=== PATIENT | male | born 1990 | race African-American/Black ===

== ENCOUNTER 2017-09-25 | Emergency (ER) | payer SELFPAY ==
--- OUTSIDE RECORDS SUMMARY | 2017-09-25 11:27 | XMS REPORT ---
:1990 [facility] [address] [place] [id number] Care Team Providers Name Role Phone CALLY ALMODOVAR Primary Care Provider Unavailable CALLY ALMODOVAR M.D. Unavailable Unavailable Problems This patient has no known problems. Allergies, Adverse Reactions, Alerts This patient has no known allergies or adverse reactions. Medications This patient has no known medications. Encounters Start End Encounter Admission Attending Care Care Encounter Date/Time Date/Time Type Type Clinicians Facility Department ID 2011-08-08 2011-08-08 Emergency [facility] MED [id number] 11:09:00 11:09:00 Results Test Description Test Time Test Comments Text Results Atomic Results Result Comments Urinalysis Complete 2017-05-27 18:57:00 Test Item Value Reference Range Comments Color (test code=COLOR) Yellow Yellow,Straw,Pl yellow Clarity (test code=CLAR) Clear Clear Specific [place] (test code=SPGR) 1.019 1.001-1.035 pH (test code=PH) 7.0 5.0-9.0 Ketone (test code=KET) Negative mg/dL Negative Glucose (test code=GLUCUR) Negative mg/dL Negative Protein (test code=PROT) Negative mg/dL Negative Bilirubin (test code=BILI) Negative mg/dL Negative Occult Blood (test code=UDOB) Negative Negative Urobilinogen (test code=UROB) 0.2 mg/dL 0.2-1.0 Nitrite (test code=NIT) Negative Negative Leuk Esterase (test code=LEUK) Moderate Negative Micros Exam (test code=MEXAM) Indicated Epithelial Cells (test code=EPI) None /LPF 0-30 WBC, Urine (test code=UWBC) 25-50 /HPF 0-5 RBC, Urine (test code=URBC) None Seen /HPF 0-5 Bacteria (test code=BACT) Few /HPF RPR, [id number] 11:55:00 Test Item Value Reference Range Comments RPR (test code=RPR) Non-Reactive Non-Reactive Thyroid Stimulating Hormone (TSH)2017-05-27 08:00:00 Test Item Value Reference Range Comments TSH (test code=TSH) 1.13 mIU/mL 0.270-4.200 Lipid [id number] 07:53:00 Test Item Value Reference Range Comments Cholesterol (test 234 mg/dL 0-200 code=CHOL) Triglycerides (test 109 mg/dL 9-200 code=TRIG) HDL (test code=HDL) 76 mg/dL 40-60 Chol/HDL (test 3.1 Ratio 0.0-5.0 code=CHOLPHDL) LDL, Calculated (test 136 0-130 (NOTE)RISK OF HEART code=LDLC) DISEASEPublished by Italian Heart AssociationAnalyte Optimal Boderline Increased RiskCHOL <200 200-239 >240TRIG <150 150-199 >200HDL Male: >60 <40HDL Female: >60 <50LDL <100 130-159 >160LDL NEAR OPTIMAL IS 100-129 VLDL (test code=VLDL) 22 mg/dL 5-40 LDL/HDL (test code=LDLPHDL) 2
--- NOTE | 2017-09-25 11:41 | EDPHYS ---
Physician Documentation [facility] Name: Hima Palm Age: 27 yrs Sex: Male : 1990 Arrival Date: 09/25/2017 Time: 11:25 Bed Waiting Private MD: ED Physician Jg Lorenzo HPI: 09/25 11:35 This 27 yrs old Black Male presents to ER via Ambulatory with complaints of Medication kb Refill. 11:35 The patient presents to the emergency department requesting refill(s) for: Dilantin. kb The patient chronically suffers from seizures. The patient has experienced similar episodes in the past, chronically. The patient has not recently seen a physician. Pt states he ran out of his dilantin 4 days ago and needs more so he doesn't start having seizures. States he takes 100mg TID. States he used to see a neurologist in [place] and got it from him, but he doesn't have the gold card anymore since he moved back down here so he hasn't seen anyone. Educated on importance of seeing PCP for medication refills. Pt states "I normally just take some of my [id number], but he doesn't have any." Educated not to take other peoples medication. Verbal understanding received from pt. . Historical: - Allergies: 11:31 No Known Allergies; la1 - PMHx: 11:31 Seizures; SUICIDE ATTEMPT; la1 - Immunization history:: Adult Immunizations up to date. - Social history:: Smoking status: Patient/guardian denies using tobacco. ROS: 11:35 Constitutional: Negative for fever, chills, and weight loss, Cardiovascular: Negative kb for chest pain, palpitations, and edema, Respiratory: Negative for shortness of breath, cough, wheezing, and pleuritic chest pain, Abdomen/GI: Negative for abdominal pain, nausea, vomiting, diarrhea, and constipation, Back: Negative for injury and pain, : Negative for injury, bleeding, discharge, and swelling, MS/Extremity: Negative for injury and deformity, Skin: Negative for injury, rash, and discoloration, Neuro: Negative for headache, weakness, numbness, tingling, and seizure. Exam: 11:35 Constitutional: This is a well developed, well nourished patient who is awake, alert, kb and in no acute distress. Head/Face: Normocephalic, atraumatic. Chest/axilla: Normal chest wall appearance and motion. Nontender with no deformity. No lesions are appreciated. Cardiovascular: Regular rate and rhythm with a normal S1 and S2. No gallops, murmurs, or rubs. Normal PMI, no JVD. No pulse deficits. Respiratory: Lungs have equal breath sounds bilaterally, clear to auscultation and percussion. No rales, rhonchi or wheezes noted. No increased work of breathing, no retractions or nasal flaring. Abdomen/GI: Soft, non-tender, with normal bowel sounds. No distension or tympany. No guarding or rebound. No evidence of tenderness throughout. Skin: Warm, dry with normal turgor. Normal color with no rashes, no lesions, and no evidence of cellulitis. MS/ Extremity: Pulses equal, no cyanosis. Neurovascular intact. Full, normal range of motion. Neuro: Awake and alert, GCS 15, oriented to person, place, time, and situation. Cranial nerves II-XII grossly intact. Motor strength 5/5 in all extremities. Sensory grossly intact. Cerebellar exam normal. Normal gait. Vital Signs: 11:31 BP 149 / 96; Pulse 98; Resp 16; Temp 98.2; Pulse Ox 100% on R/A; la1 MDM: 11:28 Patient medically screened. kb 11:35 Data reviewed: vital signs, nurses notes. Data interpreted: Pulse oximetry: on room air kb is 100 %. Interpretation: normal. Counseling: I had a detailed discussion with the patient and/or guardian regarding: the historical points, exam findings, and any diagnostic results supporting the discharge/admit diagnosis, the need for outpatient follow up, a family practitioner, a neurologist, to return to the emergency department if symptoms worsen or persist or if there are any questions or concerns that arise at home. Administered Medications: No medications were administered Disposition: 17:47 Co-signature as Attending Physician, Jg Lorenzo MD. rn Disposition: 09/25/17 11:40 Discharged to Home. Impression: Encounter for medication refill. - Condition is Stable. - Discharge Instructions: Seizure, Adult, [id number]. - Prescriptions for Dilantin Kapseal 100 mg Oral Capsule - take 1 capsule by ORAL route 3 times per day; 30 capsule. - Medication Reconciliation Form, Thank You Letter, Antibiotic Education, Prescription Opioid Use form. - Follow up: Emergency Department; When: As needed; Reason: Worsening of condition. Follow up: Private Physician; When: 2 - 3 days; Reason: Recheck today's complaints, Continuance of care, Re-evaluation by your physician. Signatures: Whit Amato, NANI GOLDMAN-Jg Wallis MD MD rn Attema, Lee, RN RN la1
--- NOTE | 2017-09-25 11:41 | ER ---
Nurse's Notes [facility] Name: Hima Palm Age: 27 yrs Sex: Male : 1990 Arrival Date: 09/25/2017 Time: 11:25 Bed Waiting Private MD: Diagnosis: Encounter for medication refill Presentation: 09/25 11:29 Presenting complaint: Patient states: I am out of my sz medications, I do not have a la1 primary care doctor. Transition of care: patient was not received from another setting of care. Onset of symptoms was September 25, 2017. Care prior to arrival: None. 11:29 Method Of Arrival: Ambulatory la1 11:29 Acuity: CHANDRAKANT 5 la1 Triage Assessment: :44 General: Appears in no apparent distress. Behavior is calm, cooperative. la1 Historical: - Allergies: 11: No Known Allergies; la1 - PMHx: 11:31 Seizures; SUICIDE ATTEMPT; la1 - Immunization history:: Adult Immunizations up to date. - Social history:: Smoking status: Patient/guardian denies using tobacco. Screenin:31 Abuse screen: Denies threats or abuse. Nutritional screening: No deficits noted. la1 Tuberculosis screening: No symptoms or risk factors identified. Fall Risk None identified. Assessment: 11:31 Reassessment: Patient is alert, oriented x 3, equal unlabored respirations, skin la1 warm/dry/pink. Pain: Denies pain. Respiratory:. Vital Signs: 11: BP 149 / 96; Pulse 98; Resp 16; Temp 98.2; Pulse Ox 100% on R/A; la1 ED Course: :25 Patient arrived in ED. as 11:28 Whit Amtao FNP-C is PHCP. kb 11:28 Jg Lorenzo MD is Attending Physician. kb 11:30 Triage completed. la1 11:30 Arm band placed on left wrist. la1 11:31 Patient has correct armband on for positive identification. la1 11:32 No provider procedures requiring assistance completed. Patient did not have IV access la1 during this emergency room visit. Administered Medications: No medications were administered Outcome: 11:40 Discharge ordered by . kb 11:44 Discharged to home ambulatory. la1 11:44 Condition: stable 11:44 Discharge instructions given to patient, Instructed on discharge instructions, follow up and referral plans. medication usage, Demonstrated understanding of instructions, follow-up care, medications, Prescriptions given X 1. 11:44 Patient left the ED. la1 Signatures: Whit Amato, JONES-C PROGRAMMER-Asha Ridley Lee, RN RN la1
== END 2017-09-25 11:44 | disposition home or self-care (01) ==
CPT/HCPCS: 99282

== ENCOUNTER 2018-02-10 21:15 | Emergency (ER) | payer SELFPAY ==
--- OUTSIDE RECORDS SUMMARY | 2018-02-10 21:17 | XMS REPORT ---
:1990 [facility] Address [address] [place] [id number] Care Team Providers Name Role Phone CALLY [...] Clinicians Facility Department ID 2011-08-08 2011-08-08 Emergency [facility] MED [id number] 11:09:00 11:09:00 Results Test Description Test Time Test Comments Text Results Atomic Results Result Comments Urinalysis Complete 2017-05-27 18:57:00 Test Item Value Reference Range Comments Color (test code=COLOR) Yellow Yellow,Straw,Pl yellow Clarity (test code=CLAR) Clear Clear Specific [place] (test code=SPGR) 1.019 1.001-1.035 pH (test code=PH) [...] 0-5 Bacteria (test code=BACT) Few /HPF RPR, [id number] 11:55:00 Test Item Value Reference Range Comments RPR (test code=RPR) Non-Reactive Non-Reactive Thyroid Stimulating Hormone (TSH)2017-05-27 08:00:00 Test Item Value Reference Range Comments TSH (test code=TSH) 1.13 mIU/mL 0.270-4.200 Lipid [id number] 07:53:00 Test Item Value Reference Range Comments Cholesterol (test 234 mg/dL 0-200 code=CHOL) Triglycerides (test 109 mg/dL 9-200 code=TRIG) HDL (test code=HDL) 76 mg/dL 40-60 Chol/HDL (test 3.1 Ratio 0.0-5.0 code=CHOLPHDL) LDL, Calculated (test 136 0-130 (NOTE)RISK OF HEART code=LDLC) DISEASEPublished by [place] Heart AssociationAnalyte Optimal Boderline Increased RiskCHOL <200 200-239 >240TRIG <150 150-199 >200HDL Male: >60 <40HDL Female: >60 <50LDL <100 130-159 >160LDL NEAR OPTIMAL IS 100-129 VLDL (test code=VLDL) 22 mg/dL 5-40 LDL/HDL (test code=LDLPHDL) 2
[2018-02-10] MEDS ORDERED: MORPHINE 4 MG/ML SYR ONE (21:47)
[2018-02-10] MEDS ORDERED: NA CHLORIDE 0.9% 1,000 ML ONE (21:47)
[2018-02-10] MEDS ORDERED: ONDANSETRON 4 MG/2 ML VIAL ONE (21:47)
[2018-02-10 22:15] LABS: Absolute Lymphocytes (CBC) 1.6 K/uL (0.7-4.9); Absolute Monocytes 0.6 K/uL (0.1-1.3); Absolute Neutrophil 3.6 K/uL (1.8-8.0); Basophils % 0.8 % (0-1.3); Eosinophils % 2.2 % (0-4.4); Hematocrit 40.5 % (39.6-49.0); Lymphocytes % 26.8 % (15.3-44.8); MCH 29.3 pg (27.0-35.0); MCV 86.1 fL (80-100); MPV 8.1 fL (7.6-11.3); Monocytes % 9.9 % (3.3-12.3); RBC Red Blood Cell Count 4.71 M/uL (4.33-5.43)
[2018-02-10 22:35] LABS: Bilirubin Direct 0.1 mg/dL (0-0.2); Bilirubin Total 0.3 mg/dL (0.2-1.0); Potassium 3.8 mmol/L (3.5-5.1); Protein, Total 7.3 g/dL (6.4-8.2)
[2018-02-10] MEDS ORDERED: PHENYTOIN ER 100 MG CAP PO ONE (22:46)
[2018-02-10 23:18] LABS: Barbiturates NEGATIVE (NEGATIVE); Benzodiazepines NEGATIVE (NEGATIVE); Calcium Oxalate Crystals- Ur FEW (NONE SEEN); Cocaine POSITIVE (NEGATIVE); METHAMPHETAM POSITIVE (NEGATIVE); Methadone NEGATIVE (NEGATIVE); Opiates POSITIVE (NEGATIVE); Phencyclidine NEGATIVE (NEGATIVE); THC Cannibis POSITIVE (NEGATIVE); Urine Bacteria <20 /HPF (NONE SEEN); Urine Culture Reflex Order REFLEXED; Urine Mucus HEAVY /HPF (NONE SEEN); Urine RBC NONE SEEN /HPF (NONE SEEN)
[2018-02-10 23:20] LABS: Urine Blood NEGATIVE (NEG); Urine Glucose NEGATIVE (NEG); Urine Protein 2+ (NEG); Urine Specific Gravity >1.030 (1.005-1.030); Urine pH 5.5 (5.0-7.0)
--- NOTE | 2018-02-10 23:31 | ER ---
Nurse's Notes [facility] Name: Hima Palm Age: 27 yrs Sex: Male : 1990 Arrival Date: 02/10/2018 Time: 21:16 Bed 6 Private MD: Diagnosis: Pain in right hip;Patient's other noncompliance with medication regimen;Urinary tract infection, site not specified;Cocaine abuse;Opiod Abuse;Methamphetamine Abuse;Marijuana Abuse Presentation: 02/10 21:18 Presenting complaint: EMS states: Reports he has been complaining of right upper leg ea pain that started around noon today. EMS reports pt was diaphoretic, complaining of severe pain. Pt reports he has a history of seizures and has not been taking his medication as ordered. Transition of care: patient was not received from another setting of care. Onset of symptoms was February 10, 2018. Risk Assessment: Do you want to hurt yourself or someone else? Patient reports no desire to harm self or others. Initial Sepsis Screen: Does the patient meet any 2 criteria? HR > 90 bpm. Yes Does the patient have a suspected source of infection? No. Patient's initial sepsis screen is negative. Care prior to arrival: 18 G to right AC with NS running at bolus. Fentanyl 50mcg given at 2050. 21:18 Method Of Arrival: EMS: [facility] ea 21:18 Acuity: CHANDRAKANT 3 ea Triage Assessment: 21:23 General: Appears uncomfortable, Behavior is restless. ea Historical: - Allergies: 21:23 No Known Allergies; ea - Home Meds: 21:23 Dilantin Oral 100 mg three times a day [Active]; ea - PMHx: 21:23 SUICIDE ATTEMPT; Seizures; ea - Immunization history:: Adult Immunizations up to date. - Social history:: Smoking status: Patient/guardian denies using tobacco. - Ebola Screening: : No symptoms or risks identified at this time. - Family history:: not pertinent. - Hospitalizations: : No recent hospitalization is reported. Screenin:24 Abuse screen: Denies threats or abuse. Nutritional screening: No deficits noted. ea Tuberculosis screening: No symptoms or risk factors identified. Fall Risk None identified. Assessment: 21:24 General: Appears in no apparent distress. uncomfortable, slender, Behavior is bs1 cooperative, appropriate for age. Pain: Complains of pain in right upper leg/hip Pain does not radiate. Neuro: Level of Consciousness is awake, alert, obeys commands, Oriented to person, place, time, situation, Appropriate for age Facial symmetry appears normal. Cardiovascular: Denies chest pain, shortness of breath, Heart tones S1 S2 present Capillary refill < 3 seconds Patient's skin is warm and dry. Respiratory: Airway is patent Trachea midline Respiratory effort is even, unlabored, Breath sounds are clear bilaterally. GI: No signs and/or symptoms were reported involving the gastrointestinal system. : No signs and/or symptoms were reported regarding the genitourinary system. EENT: No signs and/or symptoms were reported regarding the EENT system. Derm: Skin is intact. Musculoskeletal: Circulation, motion, and sensation intact. Capillary refill < 3 seconds, Range of motion: limited in right leg Reports pain in right upper leg. 21:30 Reassessment: suicide precautions implemented, guard rails padded, suction at bedside. bs1 22:45 Reassessment: Patient appears in no apparent distress at this time. Patient and/or bs1 family updated on plan of care and expected duration. Pain level reassessed. Patient is alert, oriented x 3, equal unlabored respirations, skin warm/dry/pink. Patient informed of POC/pending CT/ultrasound results. 02/11 00:00 Reassessment: Patient appears in no apparent distress at this time. Patient and/or bs1 family updated on plan of care and expected duration. Pain level reassessed. Patient is alert, oriented x 3, equal unlabored respirations, skin warm/dry/pink. Patient states understanding of DC instructions/POC Patient states feeling better. Vital Signs: 02/10 21:23 BP 108 / 98; Pulse 98; Resp 18; Temp 98(O); Pulse Ox 100% ; Weight 63.5 kg; Height 5 ea ft. 5 in. (165.10 cm); Pain 10/10; 22:00 BP 130 / 92; Pulse 85; Resp 17 S; Pulse Ox 99% ; bs1 23:00 BP 114 / 88; Pulse 88; Resp 16 S; Pulse Ox 100% on R/A; Pain 6/10; bs1 02/11 00:00 BP 133 / 90; Pulse 86; Resp 16; Temp 98(O); Pulse Ox 100% on R/A; Pain 3/10; bs1 02/10 21:23 Body Mass Index 23.30 (63.50 kg, 165.10 cm) ea ED Course: 02/10 21:16 Patient arrived in ED. ds1 21:16 Kimberley Murphy FNP [facility] kav 21:22 Triage completed. ea 21:30 Patient has correct armband on for positive identification. Bed in low position. Call bs1 light in reach. Side rails up X 1. Seizure precautions initiated. 21:30 Pulse ox on. NIBP on. Warm blanket given. bs1 21:30 Arm band placed on left wrist. bs1 21:55 Inserted saline lock: 22 gauge in right upper arm, using aseptic technique. Blood bs1 collected. by me. Flushed with 10cc NS. 22:07 Patient moved to [place] via stretcher. vm2 22:15 CT completed. Patient tolerated procedure well. Patient moved back from [place]. nj 22:24 CT Pelvis wo Cont In Process Unspecified. EDMS 22:39 Olivia Frost, RUIZ is Primary Nurse. bs1 22:44 Ultrasound completed. aa4 22:44 US Extremity Venous W Compression Arian In Process Unspecified. EDMS 23:17 Chintan Fuller MD is Attending Physician. ka 02/11 00:00 No provider procedures requiring assistance completed. IV discontinued, bleeding bs1 controlled, No redness/swelling at site. Pressure dressing applied, Removed EMS IV 20 g Right FA. Administered Medications: 02/10 22:06 Drug: NS 0.9% 1000 ml Route: IV; Rate: 1000 ml; Site: right antecubital; bs1 02/11 00:04 Follow up: IV Status: Completed infusion bs1 02/10 22:06 Drug: Zofran 4 mg Route: IVP; Site: right antecubital; bs1 22:45 Follow up: Response: No adverse reaction bs1 22:06 Drug: morphine 4 mg Route: IVP; Site: right antecubital; bs1 22:45 Follow up: Response: No adverse reaction bs1 22:45 Drug: Phenytoin 100 mg Route: PO; bs1 22:45 Follow up: Response: No adverse reaction bs1 Outcome: 23:31 Discharge ordered by . kav 02/11 00:02 Discharged to [facility],patient to call for ride home. Patient came in by EMS. [place] bs1 given to patient Condition: stable Discharge instructions given to patient, Instructed on discharge instructions, follow up and referral plans. medication usage, Demonstrated understanding of instructions, follow-up care, medications, Prescriptions given X 2. 00:05 Patient left the ED. bs1 Signatures: Dispatcher [employer] EDMS Kimberley Murphy, CHARGE ACCOUNTS AUDIT CLERK CHARGE ACCOUNTS AUDIT CLERK Doreen Joel ds1 Katie Dye aa4 Óscar Shelton Victoria 2 Ludmila Davila, RN RN Olivia Fernandez RN RN bs1
--- NOTE | 2018-02-10 23:31 | EDPHYS ---
Physician Documentation [facility] Name: Hima Palm Age: 27 yrs Sex: Male : 1990 Arrival Date: 02/10/2018 Time: 21:16 Bed 6 Private MD: ED Physician Chintan Fuller HPI: 02/10 21:17 This 27 yrs old Black Male presents to ER via Unassigned with complaints of Leg Pain. kav 21:57 The patient or guardian reports pain. that occurred at an unknown site, sustained from kav unknown reason, There is no obvious deformity, The patient is able to ambulate with assistance. The complaints affect the right hip. 21:59 Onset: The symptoms/episode began/occurred acutely, 12 hour(s) ago. Modifying factors: kav The symptoms are alleviated by nothing, the symptoms are aggravated by any movement. The patient presents with pain, that is acute. The complaints affect the right hip. Context: The problem was sustained at an unknown site, resulted from an unknown cause, Problem is a result from a previous injury: No. Patient also reports that he is out of his seizure medication: Phyentoin 100 mg po tid. He has been seen in this ED since 2013 with similar c/o each visit. Non-compliant with medication regimen.. Historical: - Allergies: 21:23 No Known Allergies; ea - Home Meds: 21:23 Dilantin Oral 100 mg three times a day [Active]; ea - PMHx: 21:23 SUICIDE ATTEMPT; Seizures; ea - Immunization history:: Adult Immunizations up to date. - Social history:: Smoking status: Patient/guardian denies using tobacco. - Ebola Screening: : No symptoms or risks identified at this time. - Family history:: not pertinent. - Hospitalizations: : No recent hospitalization is reported. ROS: 21:59 Constitutional: Negative for fever, chills, and weight loss, Eyes: Negative for injury, kav pain, redness, and discharge, ENT: Negative for injury, pain, and discharge, Neck: Negative for injury, pain, and swelling, Cardiovascular: Negative for chest pain, palpitations, and edema, Respiratory: Negative for shortness of breath, cough, wheezing, and pleuritic chest pain, Abdomen/GI: Negative for abdominal pain, nausea, vomiting, diarrhea, and constipation, Back: Negative for injury and pain, : Negative for injury, bleeding, discharge, and swelling, Skin: Negative for injury, rash, and discoloration, Neuro: Negative for headache, weakness, numbness, tingling, and seizure, Psych: Negative for depression, anxiety, suicide ideation, homicidal ideation, and hallucinations, Allergy/Immunology: Negative for hives, rash, and allergies, Endocrine: Negative for neck swelling, polydipsia, polyuria, polyphagia, and marked weight changes, Hematologic/Lymphatic: Negative for swollen nodes, abnormal bleeding, and unusual bruising. 21:59 MS/extremity: Positive for pain, Negative for swelling, warmth. Exam: 21:59 Constitutional: This is a well developed, well nourished patient who is awake, alert, kav and in no acute distress. Head/Face: Normocephalic, atraumatic. Eyes: Pupils equal round and reactive to light, extra-ocular motions intact. Lids and lashes normal. Conjunctiva and sclera are non-icteric and not injected. Cornea within normal limits. Periorbital areas with no swelling, redness, or edema. ENT: Nares patent. No nasal discharge, no septal abnormalities noted. Tympanic membranes are normal and external auditory canals are clear. Oropharynx with no redness, swelling, or masses, exudates, or evidence of obstruction, uvula midline. Mucous membranes moist. Neck: Trachea midline, no thyromegaly or masses palpated, and no cervical lymphadenopathy. Supple, full range of motion without nuchal rigidity, or vertebral point tenderness. No Meningismus. Chest/axilla: Normal chest wall appearance and motion. Nontender with no deformity. No lesions are appreciated. Cardiovascular: Regular rate and rhythm with a normal S1 and S2. No gallops, murmurs, or rubs. Normal PMI, no JVD. No pulse deficits. Respiratory: Lungs have equal breath sounds bilaterally, clear to auscultation and percussion. No rales, rhonchi or wheezes noted. No increased work of breathing, no retractions or nasal flaring. Abdomen/GI: Soft, non-tender, with normal bowel sounds. No distension or tympany. No guarding or rebound. No evidence of tenderness throughout. Back: No spinal tenderness. No costovertebral tenderness. Full range of motion. Skin: Warm, dry with normal turgor. Normal color with no rashes, no lesions, and no evidence of cellulitis. Neuro: Awake and alert, GCS 15, oriented to person, place, time, and situation. Cranial nerves II-XII grossly intact. Motor strength 5/5 in all extremities. Sensory grossly intact. Cerebellar exam normal. Normal gait. Psych: Awake, alert, with orientation to person, place and time. Behavior, mood, and affect are within normal limits. 21:59 Musculoskeletal/extremity: Extremities: noted in the right hip: ROM: limited active range of motion, in the right hip, Circulation is intact in all extremities. Pulses: are normal with no appreciated deficits, noted to be 2+ in the , Sensation intact. Joints: the displays Vital Signs: 21:23 BP 108 / 98; Pulse 98; Resp 18; Temp 98(O); Pulse Ox 100% ; Weight 63.5 kg; Height 5 ea ft. 5 in. (165.10 cm); Pain 10/10; 22:00 BP 130 / 92; Pulse 85; Resp 17 S; Pulse Ox 99% ; bs1 23:00 BP 114 / 88; Pulse 88; Resp 16 S; Pulse Ox 100% on R/A; Pain 6/10; bs1 02/11 00:00 BP 133 / 90; Pulse 86; Resp 16; Temp 98(O); Pulse Ox 100% on R/A; Pain 3/10; bs1 02/10 21:23 Body Mass Index 23.30 (63.50 kg, 165.10 cm) ea MDM: 02/10 21:55 Medical screening is not applicable. kav 22:44 Data reviewed: vital signs, nurses notes, lab test result(s). ED course: preliminary us kav is negative per us tech. 02/10 21:37 Order name: Amylase, Serum; Complete Time: 22:45 kav 02/10 21:37 Order name: Basic Metabolic Panel; Complete Time: 22:45 kav 02/10 21:37 Order name: CBC with Diff; Complete Time: 22:34 kav 02/10 21:37 Order name: Creatinine for Radiology; Complete Time: 22:34 kav 02/10 21:37 Order name: Hepatic Function; Complete Time: 22:45 kav 02/10 21:37 Order name: Lipase; Complete Time: 22:45 kav 02/10 21:37 Order name: Urine Microscopic Only; Complete Time: 23:27 kav 02/10 21:53 Order name: US Extremity Venous W Compression Arian ka 02/10 21:56 Order name: Urine Drug Screen; Complete Time: 23:27 kav 02/10 22:05 Order name: CT Pelvis wo Cont ka 02/10 22:58 Order name: Urine Dipstick--Ancillary (enter results) rg2 02/10 22:58 Order name: Urine Dipstick-Ancillary; Complete Time: 23:27 EDTN 02/10 23:20 Order name: Urine Culture [facility] 02/10 21:37 Order name: IV Saline Lock; Complete Time: 22:07 kav 02/10 21:37 Order name: Labs collected and sent; Complete Time: 22:07 [facility] 02/10 21:37 Order name: Urine Dipstick-Ancillary (obtain specimen); Complete Time: 22:58 kav Administered Medications: 22:06 Drug: NS 0.9% 1000 ml Route: IV; Rate: 1000 ml; Site: right antecubital; bs1 02/11 00:04 Follow up: IV Status: Completed infusion bs1 02/10 22:06 Drug: Zofran 4 mg Route: IVP; Site: right antecubital; bs1 22:45 Follow up: Response: No adverse reaction bs1 22:06 Drug: morphine 4 mg Route: IVP; Site: right antecubital; bs1 22:45 Follow up: Response: No adverse reaction bs1 22:45 Drug: Phenytoin 100 mg Route: PO; bs1 22:45 Follow up: Response: No adverse reaction bs Disposition: 02/11 03:05 Co-signature as Attending Physician, Chintan Fuller MD. Disposition: 02/10/18 23:31 Discharged to Home. Impression: Pain in right hip, Patient's other noncompliance with medication regimen, Urinary tract infection, site not specified, Cocaine abuse, Opiod Abuse, Methamphetamine Abuse, Marijuana Abuse. - Condition is Stable. - Discharge Instructions: Joint Pain, Medicine Refill at the Emergency Department, Urinary Tract Infection, Adult, [id number], Stimulant Use Disorder-Methamphetamines, Hip Pain. - Prescriptions for Phenytoin Sodium Extended 100 mg Oral Capsule - take 1 capsule by ORAL route every 8 hours; 30 capsule. Bactrim DS 800- 160 mg Oral Tablet - take 1 tablet by ORAL route every 12 hours for 10 days; 20 tablet. - Medication Reconciliation Form, Thank You Letter, Antibiotic Education, Prescription Opioid Use form. - Follow up: Private Physician; When: 2 - 3 days; Reason: Further diagnostic work-up, Recheck today's complaints, Continuance of care, Re-evaluation by your physician. - Problem is new. - Symptoms have improved. Signatures: Dispatcher [employer] EDKimberley Raymond, NUTRITION TECH NUTRITION TECH Ludmila Crandall, RN RN Chintan Nath MD MD gs Salazar, Brittany, RN RN bs1 Corrections: (The following items were deleted from the chart) 00:05 08 23:31 02/10/2018 23:31 Discharged to Home. Impression: Pain in right hip; bs1 Patient's other noncompliance with medication regimen; Urinary tract infection, site not specified; Cocaine abuse; Opiod Abuse; Methamphetamine Abuse; Marijuana Abuse. Condition is Stable. Discharge Instructions: Joint Pain, Medicine Refill at the Emergency Department, Hip Pain. Forms are Medication Reconciliation Form, Thank You Letter, Antibiotic Education, Prescription Opioid Use. Follow up: Private Physician; When: 2 - 3 days; Reason: Further diagnostic work-up, Recheck today's complaints, Continuance of care, Re-evaluation by your physician. Problem is new. Symptoms have improved. kav
--- NOTE | 2018-02-11 08:36 | RAD REPORT ---
EXAM DESCRIPTION: VAS - Extrem Venous W Compress Arian - 02/10/2018 10:46 pm CLINICAL HISTORY: Leg pain and swelling COMPARISON: None. TECHNIQUE: Real-time sonographic evaluation of the bilateral lower extremity deep venous systems was performed. FINDINGS: Normal compressibility, flow augmentation, phasic flow and spontaneous flow are identified in the bilateral lower extremity common femoral, superficial femoral, popliteal and posterior tibial veins. No intraluminal filling defects seen. IMPRESSION: No DVT in the bilateral lower extremity.
--- NOTE | 2018-02-11 08:37 | RAD REPORT ---
EXAM DESCRIPTION: CT - Pelvis Wo Cont - 02/10/2018 10:24 pm CLINICAL HISTORY: Pelvic pain, right hip pain, no history of specific traumatic event detailed. A preliminary written report was provided at the time of the study, and the report was reviewed prio r to final dictation. COMPARISON: None. TECHNIQUE: Axial 2 millimeter thick images of the pelvis were obtained with sagittal and coronal ref ormatted images generated and reviewed. FINDINGS: No skeletal muscle mass, edema or asymmetry. There is a mild congestion or edema pattern i n the lateral and posterior gluteal subcutaneous fatty tissues. No air, foreign body or abscess. No s oft tissue mass or hematoma identified. No bowel abnormality. No abnormal calcifications in the soft tissues. No acute fracture changes identifiable. A 13 millimeter sclerotic area in the posterior column acetab ulum on the right is believed to be an incidental bone island. Likelihood of a blastic met is extreme ly low. A small 5 mm bony density is seen along the anterior superior right acetabular rim (image 63/ 126). There are no other abnormalities in this region. With this seizure history, a small fracture is not excluded though this may well be a normal variant. Small lucent line seen at the superior margin of the left S1 superior facet is not suspected to be an acute fracture. No bony hypertrophy or other significant degenerative change. No pars defect in L4 or L5. IMPRESSION: No fracture or acute finding identifiable. Above detailed findings are doubtful as being acute.
== END 2018-02-11 00:05 | disposition home or self-care (01) ==
LOC: ER 21:15
DX: M25.551 Pain in right hip (principal)
CPT/HCPCS: 36415; 72192; 80048; 80076; 80307; 81003; 81015; 82150; 83690; 85025; 87086; 87088; 93970; 96361; 96374; 96375; 99285; J2405; J7030

== ENCOUNTER 2020-06-28 | Emergency (ER) | payer SELFPAY ==
--- OUTSIDE RECORDS SUMMARY | 2020-06-28 19:42 | XMS REPORT | Continuity of Care Document ---
:1990 Author Organization [facility] t Address [address] [place] [address] Care Team Providers Name Role Phone SCOOBY Primary Care Physician Unavailable Chun YOON Attending Clinician Ameena YOON Attending Clinician CALLY ALMODOVAR M.D. Attending Clinician Unavailable Ameena YOON Admitting Clinician CALLY ALMODOVAR M.D. Admitting Clinician Unavailable Problems This patient has no known problems. Allergies, Adverse Reactions, Alerts This patient has no known allergies or adverse reactions. Medications This patient has no known medications. Procedures This patient has no known procedures. Encounters Start End Encounter Admission Attending Care Care Encounter Source Date/Time Date/Time Type Type Clinicians Facility Department ID 2019-11-17 2019-11-18 Emergency Vladislav Mccollum [facility] [id number] 08:58:17 13:00:00 Cesar Lindquist [id number] [place] [id number] [place] [id number] 2011-08-08 2011-08-08 Emergency [facility] MED [id number] [facility] 11:09:00 11:09:00 Results Test Description Test Time Test Comments Results Result Comments Source Urinalysis Complete 2017-05-27 18:57:00 Test Item Value Reference Range Interpretation Comme nts Color (test code = COLOR) Yellow Yellow,Straw,Pl yellow N Clarity (test code = CLAR) Clear Clear N Specific [place] (test code = SPGR) 1.019 1.001-1.035 N pH (test code = PH) 7.0 5.0-9.0 N Ketone (test code = KET) Negative mg/dL Negative N Glucose (test code = GLUCUR) Negative mg/dL Negative N Protein (test code = PROT) Negative mg/dL Negative N Bilirubin (test code = BILI) Negative mg/dL Negative N Occult Blood (test code = UDOB) Negative Negative N Urobilinogen (test code = UROB) 0.2 mg/dL 0.2-1.0 N Nitrite (test code = NIT) Negative Negative N Leuk Esterase (test code = LEUK) Moderate Negative A Micros Exam (test code = MEXAM) Indicated Epithelial Cells (test code = EPI) None /LPF 0-30 A WBC, Urine (test code = UWBC) 25-50 /HPF 0-5 A RBC, Urine (test code = URBC) None Seen /HPF 0-5 A Bacteria (test code = BACT) Few /HPF RPR, [id number] 11:55:00 Test Item Value Reference Range Interpretation Comments RPR (test code = RPR) Non-Reactive Non-Reactive N Thyroid Stimulating Hormone (TSH)2017-05-27 08:00:00 Test Item Value Reference Range Interpretation Comments TSH (test code = TSH) 1.13 mIU/mL 0.270-4.200 N Lipid [id number] 07:53:00 Test Item Value Reference Range Interpretation Comments Cholesterol (test 234 mg/dL 0-200 H code = CHOL) Triglycerides (test 109 mg/dL 9-200 N code = TRIG) HDL (test code = 76 mg/dL 40-60 H HDL) Chol/HDL (test code 3.1 Ratio 0.0-5.0 N = CHOLPHDL) LDL, Calculated 136 0-130 H (NOTE)RISK O F HEART (test code = LDLC) DISEASEPu blished by [place] Heart AssociationAnal yte Optim al Boderline Increased RiskC HOL <200 200-239 >240TRI G <150 150-199 >200HDL Male: >60 <40HDL Female: >60 <50 LDL < 100 130-15 9 >160 LDL NEAR OPTIMAL IS 100- 129 VLDL (test code = 22 mg/dL 5-40 N VLDL) LDL/HDL (test code = 2 LDLPHDL)
--- NOTE | 2020-06-28 20:00 | ER ---
Nurse's Notes [facility] Name: Hima Palm Age: 30 yrs Sex: Male : 1990 Arrival Date: 06/28/2020 Time: 19:41 Bed Waiting Private MD: Diagnosis: ED Course: 06/28 19:41 Patient arrived in ED. cl3 19:48 Not in lobby or restroom. ll1 20:01 Not in lobby or restroom. Left without being seen. ll1 Administered Medications: No medications were administered Outcome: 20:00 Patient left the ED. ll1 Signatures: Adan Cabrera cl3 Ronn Cabrera, RN RN ll1
== END 2020-06-28 20:00 | disposition left against medical advice (07) ==
DX: Z02.9 Encounter for administrative examinations, unspecified (principal)

== ENCOUNTER 2024-04-08 16:16 | Emergency (ER) | payer OTHER, SELFPAY ==
--- OUTSIDE RECORDS SUMMARY | 2024-04-08 16:20 | XMS REPORT | Continuity of Care Document ---
Author Name Unknown Address [address] [place] [address] [facility] Address [address] [place] [address] Care Team Providers Care Electronic Console Display Operator Name Role Phone MARIA FERNANDA ALMODOVAR Primary Care Physician Unavailab ANIRUDH Johnson Attending Clinician UnavailAnirudh Mcdaniel MD Attending Clinician +[phone] KAYLA GRANADOS Attending Clinician Unavailable Kayla Granados DO Attending Clinician + 2 STEFFANY MCCOLLUM Attending Clinician Unavailable Steffany Mccollum MD Attending Clinician + 2 Brigid Turner Attending Clinician [phone] Nayeli Bartlett NP Attending Clinician + [phone] Doctor Unassigned, [place] Attending Clinician U candidaailSkye Chakraborty DO Attending Clinician +[phone] C[place] MD Attending Clinician +[phone] [place] Attending Clinician Unavailable MARIA FERNANDA ALMODOVAR M.D., Guevara ALAMO Clinician Unavailable ANIRUDH FREGOSO Admitting Clinician Cesar Cardenas MD Admitting Clinician [phone] [place] Admitting Clinician Unavailable MARIA FERNANDA ALMODOVAR M.D., MARIA FERNANDA Admitting Clini bryon Unavailable Problems Condition Name Condition Details Condition Category Status Onset Date Resolution Date Last Treatment Date Treating Clinician Comments Source Seizure Seizure Disease Active 10-28 00:00: 00 [facility] Medication refill Medication refill Disease Active 1-18 00:00: 00 [facility] Hypoglycem ia Hypoglycem ia Disease Active 11-16 00:00: 00 [facility] Obesity (BMI 30-39.9) Obesity (BMI 30-39.9) Disease Active 11-16 00:00: 00 [facility] Allergies, Adverse Reactions, Alerts Allergy Name Allergy Type Status Severity Reaction(s) Onset Date Inactive Date Treating Clinician Comments Source NO KNOWN ALLERGIE S Drug Class Active [facility] Social History Social Habit Start Date Stop Date Quantity Comments Source History of tobacco use Cigarette Smoker [facility] Exposure to SARS-CoV-2 (event) 2022-10-18 00:00:00 2022-10-28 12:23:00 Not sure [facility] Alcohol intake 2022-10-28 00:00:00 2022-10-28 00:00:00 Ex-drinker (finding) [facility] Cigarettes smoked current (pack per day) - Reported 2019-11-17 00:00:00 2019-11-17 00:00:00 [facility] Sex Assigned At 1990 00:00:00 1990 00:00:00 [facility] Smoking Status Start Date Stop Date Source Smokes tobacco daily 2019-11-17 00:00:00 [facility] Medications Ordered Medication Name Filled Medication Name Start Date Stop Date Current Medication? Ordering Clinician Indication Dosage Frequency Signature (SIG) Comments Components Source phenytoin (DILANTIN) 300 mg in NaCl 0.9% (NS) 10-28 22:15: 00 10-28 23:07 :00 No 300mg 300 mg, IV Piggyback, Administer over 20 Minutes, ONCE, 1 dose, On Thu10/28/22 at 1715, STAT [facility] ketorolac (TORADOL) injection 30 mg 10-28 19:30: 00 10-28 18:41 :00 No 30mg 30 mg, Slow IV Push, ONCE, 1 dose, On Thu10/28/22 at 1430, Routine [facility] NaCl 0.9% (NS) bolus infusion 1,000 mL 10-28 17:45: 00 10-28 20:09 :00 No 1000mL at 999 mL/hr, 1,000 mL, IV Infusion, ONCE, 1 dose, On Thu10/28/22 at 1245, STAT [facility] phenytoin Extended (DILANTIN) 30 mg capsule 10-28 00:00: 00 11-28 04:59 :00 No [id number] 30mg Take 1 capsule by mouth in the morning and 1 capsule at noon and 1 capsule in the evening. Do all this for 30 days. [facility] chlorhexidi ne 0.12 % mouthwash 10-17 00:00: 00 Yes [id number] 15mL Swish and spit out 15 mL in the morning and 15 mL in the evening. [facility] methylPREDN ISolone (MEDROL, ILANA,) 4 mg tablets 10-17 00:00: 00 Yes [id number] Take by mouth SEE-INSTRU CTIONS. follow package directions [facility] naproxen sodium (ANAPROX DS) 550 mg tablet 10-17 00:00: 00 Yes [id number] 550mg Take 1 tablet by mouth in the morning and 1 tablet in the evening. Take with meals. [facility] clindamycin 150 mg capsule 10-17 00:00: 00 10-25 04:59 :00 No [id number] 300mg Take 2 capsules by mouth 4 (four) times daily for 7 days. [facility] amoxicillin 500 mg capsule 07-08 00:00: 00 Yes [id number] 500mg Take 1 capsule by mouth in the morning and 1 capsule at noon and 1 capsule in the evening. [facility] traMADoL 50 mg tablet 07-08 00:00: 00 Yes [id number] 50mg Take 1 tablet by mouth every 6 (six) hours as needed for Pain (scale 4-6). Indication s: acute pain [facility] naproxen 500 mg tablet 1-03 00:00: 00 07-19 05:59 :00 No [id number] 500mg Take 1 tablet by mouth in the morning and 1 tablet in the evening. Take with meals. Do all this for 10 days. [facility] HYDROcodone -acetaminop hen (NORCO 5) 5-325 mg tablet 1 tablet 2020-07 18:30: 00 04-05 17:59 :00 No 1{tbl} 1 tablet, Oral, ONCE, 1 dose, On Thu04/05/21 at 1330, ANDI [facility] traMADoL 50 mg tablet 2020-07 00:00: 00 Yes [id number] 50mg Take 1 tablet by mouth every 6 (six) hours as needed for Pain (scale 7-10). Indication s: acute pain [facility] benzonatate 100 mg capsule 02-21 00:00: 00 Yes [id number] 100mg Take 1 capsule by mouth 3 (three) times daily as needed for Cough. [facility] erythromyci n 5 mg/gram (0.5 %) ophthalmic ointment 09-18 00:00: 00 Yes [id number] .5[in_u s] Place 0.5 Inches in both eyes 4 (four) times daily. [facility] bacitracin- neomycin-po lymyxin b-hydrocort isone (CORTISPORI N) 1 % ointment 09-18 00:00: 00 Yes [id number] Apply to area(s) 2 (two) times daily. [facility] phenytoin Extended 100 mg capsule 07-23 00:00: 00 Yes [id number] 300mg Take 3 capsules by mouth at bedtime. [facility] phenytoin Extended 100 mg capsule 11-17 00:00: 00 07-23 00:00 :00 No [id number] 300mg Take 3 capsules by mouth at bedtime. [facility] acetaminoph en (TYLENOL) tablet 650 mg 11-16 17:05: 28 Yes 650mg 650 mg, Oral, Q6HPRN, Starting Maria C 11/17/19 at 1205, Until Discontinu ed, Routine, Pain (scale 1-3) [facility] fosphenytoi n (CEREBYX) 1,500 mg PE in NaCl 0.9% (NS) piggyback 11-16 15:15: 00 Yes 1500mg{ phenyto in'equi valent} 1,500 mg PE, IV Piggyback, Q24H, First dose on Maria C 11/17/19 at 1015, Until Discontinu ed, 100 mL [facility] metoclopram mike HCl (REGLAN) injection 10 mg 11-16 15:00: 00 11-16 14:09 :00 No 10mg 10 mg, Slow IV Push, ONCE, 1 dose, Maria C 11/17/19 at 1000, ANDI [facility] NaCl 0.9% (NS) bolus infusion 1,000 mL 11-16 15:00: 00 11-16 16:00 :00 No 1000mL at 999 mL/hr, 1,000 mL, IV Infusion, ONCE, 1 dose, Maria C 11/17/19 at 1000, STAT [facility] ketorolac (TORADOL) injection 30 mg 11-16 15:00: 00 11-16 14:10 :00 No 30mg 30 mg, Slow IV Push, ONCE, 1 dose, Maria C 11/17/19 at 1000, ANDI
Fa culty member approving Restricted medication : STEFFANY MCCOLLUM [facility] traMADOL (ULTRAM) 50 mg tablet 02-19 00:00: 00 04-05 00:00 :00 No 50mg Take 1 tablet by mouth every 6 (six) hours as needed for Pain (scale 4-6). [facility] PHENYTOIN EXTENDED 100 mg capsule 08-07 00:00: 00 11-17 00:00 :00 No 300mg Take 3 capsules by mouth at bedtime. [facility] Vital Signs Vital Name Observation Time Observation Value Comments S ource Systolic blood pressure 2022-10-28 23:40:00 139 mm[Hg] [facility] Diastolic blood pressure 2022-10-28 23:40:00 99 mm[Hg] [facility] Heart rate 2022-10-28 23:40:00 89 /min Un[facility] Respiratory rate 2022-10-28 23:40:00 16 /min [facility] Oxygen saturation in Arterial blood by Pulse oximetry 2022-10-28 23:40:00 99 /min [facility] Body temperature 2022-10-28 17:28:39 36.72 Zee [facility] Body height 2022-10-28 17:22:00 162.6 cm Univ [facility] Body weight 2022-10-28 17:22:00 65.772 kg [facility] BMI 2022-10-28 17:22:00 24.89 kg/m2 Univ [facility] Systolic blood pressure 2022-10-18 02:59:00 190 mm[Hg] [facility] Diastolic blood pressure 2022-10-18 02:59:00 128 mm[Hg] [facility] Heart rate 2022-10-18 02:59:00 116 /min [facility] Body temperature 2022-10-18 02:59:00 36.89 Zee [facility] Respiratory rate 2022-10-18 02:59:00 20 /min [facility] Body weight 2022-10-18 02:59:00 58.968 kg Univ [facility] BMI 2022-10-18 02:59:00 22.31 kg/m2 [facility] Oxygen saturation in Arterial blood by Pulse oximetry 2022-10-18 02:59:00 99 /min [facility] Systolic blood pressure 2022-07-08 17:51:00 158 mm[Hg] [facility] Diastolic blood pressure 2022-07-08 17:51:00 106 mm[Hg] [facility] Heart rate 2022-07-08 17:51:00 92 /min [facility] Body temperature 2022-07-08 17:51:00 37 Zee [facility] Respiratory rate 2022-07-08 17:51:00 19 /min [facility] Body height 2022-07-08 17:51:00 162.6 cm [facility] Body weight 2022-07-08 17:51:00 63.504 kg [facility] BMI 2022-07-08 17:51:00 24.03 kg/m2 [facility] Oxygen saturation in Arterial blood by Pulse oximetry 2022-07-08 17:51:00 100 /min [facility] Systolic blood pressure 2021-04-05 17:58:00 145 mm[Hg] [facility] Diastolic blood pressure 2021-04-05 17:58:00 125 mm[Hg] [facility] Heart rate 2021-04-05 17:58:00 82 /min [facility] Respiratory rate 2021-04-05 17:58:00 16 /min [facility] Oxygen saturation in Arterial blood by Pulse oximetry 2021-04-05 17:58:00 100 /min [facility] Body temperature 2021-04-05 16:23:00 37.22 Zee [facility] Body height 2021-04-05 16:23:00 162.6 cm [facility] Body weight 2021-04-05 16:23:00 63.504 kg [facility] BMI 2021-04-05 16:23:00 24.03 kg/m2 [facility] Systolic blood pressure 2021-02-21 14:40:00 151 mm[Hg] [facility] Diastolic blood pressure 2021-02-21 14:40:00 87 mm[Hg] [facility] Heart rate 2021-02-21 14:40:00 106 /min [facility] Body temperature 2021-02-21 14:40:00 37.5 Zee [facility] Respiratory rate 2021-02-21 14:40:00 22 /min [facility] Body weight 2021-02-21 14:40:00 63.504 kg [facility] BMI 2021-02-21 14:40:00 23.30 kg/m2 [facility] Oxygen saturation in Arterial blood by Pulse oximetry 2021-02-21 14:40:00 100 /min [facility] Systolic blood pressure 2020-09-18 13:02:00 159 mm[Hg] [facility] Diastolic blood pressure 2020-09-18 13:02:00 100 mm[Hg] [facility] Heart rate 2020-09-18 13:02:00 109 /min [facility] Body temperature 2020-09-18 13:02:00 37.11 Zee [facility] Respiratory rate 2020-09-18 13:02:00 18 /min [facility] Body weight 2020-09-18 13:02:00 63.504 kg [facility] BMI 2020-09-18 13:02:00 23.30 kg/m2 [facility] Oxygen saturation in Arterial blood by Pulse oximetry 2020-09-18 13:02:00 100 /min [facility] Respiratory rate 2020-07-23 12:03:00 16 /min [facility] Oxygen saturation in Arterial blood by Pulse oximetry 2020-07-23 12:03:00 98 /min [facility] Systolic blood pressure 2020-07-23 11:50:02 129 mm[Hg] [facility] Diastolic blood pressure 2020-07-23 11:50:02 99 mm[Hg] [facility] Body temperature 2020-07-23 11:50:02 35.72 Zee [facility] Body weight 2020-07-23 11:46:00 63.504 kg [facility] BMI 2020-07-23 11:46:00 23.30 kg/m2 Univ [facility] Heart rate 2020-07-23 11:46:00 79 /min [facility] Systolic blood pressure 2019-11-18 15:49:00 135 mm[Hg] [facility] Diastolic blood pressure 2019-11-18 15:49:00 87 mm[Hg] [facility] Heart rate 2019-11-18 15:49:00 72 /min [facility] Body temperature 2019-11-18 15:49:00 36.61 Zee [facility] Respiratory rate 2019-11-18 15:49:00 18 /min [facility] Oxygen saturation in Arterial blood by Pulse oximetry 2019-11-18 15:49:00 98 /min [facility] Body height 2019-11-17 18:39:00 165.1 cm [facility] Body weight 2019-11-17 18:39:00 84.052 kg [facility] BMI 2019-11-17 18:39:00 30.84 kg/m2 [facility] Systolic blood pressure 2019-11-18 15:49:00 135 mm[Hg] [facility] Diastolic blood pressure 2019-11-18 15:49:00 87 mm[Hg] [facility] Heart rate 2019-11-18 15:49:00 72 /min [facility] Body temperature 2019-11-18 15:49:00 36.61 Zee [facility] Respiratory rate 2019-11-18 15:49:00 18 /min [facility] Oxygen saturation in Arterial blood by Pulse oximetry 2019-11-18 15:49:00 98 /min [facility] Body height 2019-11-17 18:39:00 165.1 cm [facility] Body weight 2019-11-17 18:39:00 84.052 kg [facility] BMI 2019-11-17 18:39:00 30.84 kg/m2 [facility] Procedures Procedure Date / Time Performed Performing Clinician Source URINALYSIS 2022-10-28 20:09:00 Anirudh [facility]regoso [facility] URINE DRUG (IMMUNOASSAY) - COMPREHENSIVE DRUG SCREEN 2022-10-28 20:08:00 Anirudh Fregoso [facility] CT CERVICAL SPINE WO CONTRAST 2022-10-28 19:00:41 Anirudh Fregoso [facility] CREATINE KINASE 2022-10-28 18:13:00 Anirudh Fregoso [facility] MAGNESIUM 2022-10-28 18:13:00 Anirudh [facility]regoso [facility] TROPONIN I 2022-10-28 18:13:00 Anirudh [facility]regoso [facility] COMP. METABOLIC PANEL ([id number]) 2022-10-28 18:13:00 Anirudh Fregoso [facility] PHENYTOIN 2022-10-28 18:13:00 Anirudh Fregoso Uni [facility] PHENYTOIN FREE 2022-10-28 18:13:00 [facility] WITH DIFF 2022-10-28 18:13:00 Anirudh Fregoso Un [facility] COVID-19 (ID NOW RAPID TESTING) 2022-10-28 18:13:00 Anirudh Fregoso [facility] XR CHEST 2 VW 2022-10-28 18:02:53 Anirudh Fregoso Un [facility] CT HEAD WO CONTRAST 2022-10-28 18:01:45 Michel Fregoso [facility] [place] INJECTION AA&/STRD TRIGEMINAL NERVE EACH BRANCH 2022-10-18 03:19:01 Kayla Granados [facility] NOTICE OF PRIVACY PRACTICES 2022-10-18 02:57:52 Doctor Unassigned, [place] [facility] CONSENT/REFUSAL FOR DIAGNOSIS AND TREATMENT 2022-10-18 02:56:27 Doctor Unassigned, [place] [facility] NOTICE OF PRIVACY PRACTICES 2022-07-08 17:46:17 Doctor Unassigned, [place] [facility] CONSENT/REFUSAL FOR DIAGNOSIS AND TREATMENT 2022-07-08 17:45:19 Doctor Unassigned, [place] [facility] ASSIGNMENT OF BENEFITS 2021-04-05 18:06:10 Docto r Unassigned, [place] [facility] CONSENT/REFUSAL FOR DIAGNOSIS AND TREATMENT 2021-04-05 16:06:20 Doctor Unassigned, [place] [facility] XR CHEST 1 VW 2021-02-21 15:20:48 Nayeli Bartlett [facility] COVID-19 (ID NOW RAPID TESTING) 2021-02-21 15:18:00 Nayeli Bartlett [facility] NOTICE OF PRIVACY PRACTICES 2021-02-21 14:21:17 Doctor Unassigned, [place] [facility] CONSENT/REFUSAL FOR DIAGNOSIS AND TREATMENT 2021-02-21 14:21:03 Doctor Unassigned, [place] [facility] CONSENT/REFUSAL FOR DIAGNOSIS AND TREATMENT 2020-09-18 12:56:27 Doctor Unassigned, [place] [facility] NOTICE OF PRIVACY PRACTICES 2020-07-23 11:38:30 Doctor Unassigned, [place] [facility] CONSENT/REFUSAL FOR DIAGNOSIS AND TREATMENT 2020-07-23 11:38:10 Doctor Unassigned, [place] [facility] BASIC METABOLIC PANEL (NA, K, CL, CO2, GLUCOSE, BUN, CREATININE, CA) 2019-11-18 10:08:00 Cesar South [facility] CBC WITH DIFFERENTIAL 2019-11-18 10:08:00 Nevaeh South [facility] FREE T4 2019-11-17 23:19:00 Cesar South [facility] CORTISOL PM SERUM 2019-11-17 17:27:00 Cesar South [facility] INSULIN, LEVEL 2019-11-17 17:27:00 Cesar South [facility] CORONAVIRUS COVID-19 TESTING 2019-11-17 17:27:00 Steffany Mccollum [facility] CRITICAL CARE 2019-11-17 17:19:26 Steffany Mccollum [facility] POCT GLUCOSE (AUTOMATED) 2019-11-17 16:36:00 Anabelle Mccollum [facility] POCT GLUCOSE (AUTOMATED) 2019-11-17 16:19:00 Anabelle Mccollum [facility] POCT GLUCOSE (AUTOMATED) 2019-11-17 15:41:00 Anabelle Mccollum [facility] XR CHEST 1 VW 2019-11-17 14:36:50 Steffany Mccollum [facility] THYROID STIMULATING HORMONE 2019-11-17 14:04:00 [facility] ([id number][facility] (ALB,T.PRO,BILI T,BU/BC,ALT,AST,ALK PHOS) 2019-11-17 14:04:00 Steffany Mccollum [facility] BASIC METABOLIC PANEL (NA, K, CL, CO2, GLUCOSE, BUN, CREATININE, CA) 2019-11-17 14:04:00 Steffany Mccollum [facility] CBC WITH DIFFERENTIAL 2019-11-17 14:04:00 Norris Mccollum [facility] GLYCOSYLATED HEMOGLOBIN (A1C) 2019-11-17 14:04:00 Cesar South [facility] URINALYSIS 2019-11-17 14:04:00 [facility]esar [facility] FREE T3 2019-11-17 14:04:00 Cesar South [facility] ADC / LCC - DRUG SCREEN TRIAGE 2019-11-17 14:04:00 Steffany Mccollum [facility] Encounters Start Date/Time End Date/Time Encounter Type Admission Type Attending [facility] Care Department Encounter ID Source 2022-10-28 12:19:00 2022-10-28 18:44:00 Emergency X ANIRUDH FREGOSO [facility] ERT [id number] [facility] 2022-10-28 12:19:00 2022-10-28 18:44:00 Emergency Anirudh Fregoso [facility] [id number] 350.1.13.10 4.2.7.2.686 [id number] [facility] 2022-10-17 22:02:00 2022-10-17 22:28:00 Emergency X KAYLA GRANADOS [facility] ERT [id number] [facility] 2022-10-17 22:02:00 2022-10-17 22:28:00 Emergency Kayla Granados [facility] [id number] 350.1.13.10 4.2.7.2.686 [id number] [facility] 2022-07-08 11:53:00 2022-07-08 13:21:00 Emergency X STEFFANY MCCOLLUM [facility] ERT [id number] [facility] 2022-07-08 11:53:00 2022-07-08 13:21:00 Emergency Steffany Mccollum [facility] [id number] 350.1.13.10 4.2.7.2.686 [id number] [facility] 2021-04-05 11:26:00 2021-04-05 13:15:00 Emergency Brigid Cruz [facility] [id number] 350.1.13.10 4.2.7.2.686 [id number] [facility] 2021-04-05 11:06:00 2021-04-05 11:06:00 Emergency X [facility] ERT [id number] [facility] 2021-02-21 09:42:00 2021-02-21 11:44:00 Emergency Nayeli Bartlett [facility] [id number] 350.1.13.10 4.2.7.2.686 [id number] [facility] 2021-02-21 09:22:00 2021-02-21 09:22:00 Emergency X [facility] ERT [id number] [facility] 2021-02-21 00:00:00 2021-02-21 00:00:00 Orders Only Doctor Unassigned, [place] [facility] 1.2.840.114 350.1.13.10 4.2.7.2.686 [id number] [facility] 2020-09-18 08:03:00 2020-09-18 08:41:00 Emergency Steffany Mccollum [facility] [id number] 350.1.13.10 4.2.7.2.686 [id number] [facility] 2020-09-18 08:03:00 2020-09-18 08:03:00 Emergency X STEFFANY MCCOLLUM [facility] ERT [id number] [facility] 2020-07-23 05:43:00 2020-07-23 06:16:00 Emergency Skye Rutledge [facility] 1.2.840.114 350.1.13.10 4.2.7.2.686 [id number] [facility] 2020-07-23 05:39:00 2020-07-23 05:39:00 Emergency X [facility] ERT [id number] [facility] 2020-07-23 00:00:00 2020-07-23 00:00:00 Orders Only Doctor Unassigned, [place] [facility] 1.2.840.114 350.1.13.10 4.2.7.2.686 [id number] [facility] 2019-11-17 08:58:17 2019-11-18 13:00:00 Emergency Steffany Mccollum Yaman [facility] 1.2.840.114 350.1.13.10 4.2.7.2.686 [id number] 2019-11-17 08:58:17 2019-11-18 13:00:00 Emergency Steffany Mccollum Yaman [facility] 1.2.840.114 350.1.13.10 4.2.7.2.686 [id number] [facility] 2019-11-17 08:58:17 2019-11-18 13:00:00 Outpatient [facility] [id number] [facility] 2011-08-08 11:09:00 2011-08-08 11:09:00 Emergency [facility] MED [id number] [facility] Results Test Description Test Time Test Comments Results Result Co mments Source [facility] [id number] 17:59:00* Test Item Value Reference Range Interpretation Comme nts WBC (test code = 6690-2) See_Comment [Automated messa ge] The system which generated this result transmitted reference range: 4.20 - 10.70 10*3/?L. The reference range was not used to interpret this result as normal/abnormal. RBC (test code = 789-8) See_Comment [Automated Buy buy teaa ge] The system which generated this result transmitted reference range: 4.26 - 5.52 10*6/?L. The reference range was not used to interpret this result as normal/abnormal. HGB (test code = 718-7) 14.1 g/dL 12.2-16.4 HCT (test code = 4544-3) 41.8 % 38.4-49.3 MCV (test code = 787-2) 83.8 fL 81.7-95.6 MCH (test code = 785-6) 28.3 pg 26.1-32.7 MCHC (test code = 786-4) 33.7 g/dL 31.2-35 RDW-SD (test code = 68209-6) 39.5 fL 38.5-51.6 RDW-CV (test code = 788-0) 13.0 % 12.1-15.4 PLT (test code = 777-3) See_Comment H [Automated Buy buy teaa ge] The system which generated this result transmitted reference range: 150 - 328 10*3/?L. The reference range was not used to interpret this result as normal/abnormal. MPV (test code = 85147-2) 10.8 fL 9.8-13 NRBC/100 WBC (test code = 0095556284) See_Comment [Automated Asuragen ssage] The system which generated this result transmitted reference range: 0.0 - 10.0 /100 WBCs. The reference range was not used to interpret this result as normal/abnormal. NRBC x10^3 (test code = 0518992008) <0.01 See_Comment [Automated Buy buy teaa ge] The system which generated this result transmitted reference range: 10*3/?L. The reference range was not used to interpret this result as normal/abnormal. GRAN MAT (NEUT) % (test code = 770-8) 30.9 % IMM GRAN % (test code = 1988017596) 0.20 % LYMPH % (test code = 736-9) 53.7 % MONO % (test code = 5905-5) 8.9 % EOS % (test code = 713-8) 5.7 % BASO % (test code = 706-2) 0.6 % GRAN MAT x10^3(ANC) (test code = 7805790714) 1.45 10*3/uL 1.99-6.95 L IMM GRAN x10^3 (test code = 6552379203) <0.03 0-0.06 LYMPH x10^3 (test code = 731-0) 2.53 10*3/uL 1.09-3.23 MONO x10^3 (test code = 742-7) 0.42 10*3/uL 0.36-1.02 EOS x10^3 (test code = 711-2) 0.27 10*3/uL 0.06-0.53 BASO x10^3 (test code = 704-7) 0.03 10*3/uL 0.01-0.09 Lab Interpretation (test code = 07717-5) Abnormal [facility] Metabolic Panel (NA, K, CL, CO2, GLUCOSE, BUN, CREATININE, CA)2019-11-18 11:37:00* Test Item Value Reference Range Interpretation Comme nts NA (test code = 1854727134) 139 mmol/L 135-145 K (test code = 4218680026) 4.1 mmol/L 3.5-5 CL (test code = 1098076135) 105 mmol/L 98-108 CO2 TOTAL (test code = 1791570184) 29 mmol/L 23-31 AGAP (test code = 3525358764) 2-16 BUN (test code = 4833565217) 7 mg/dL 7-23 GLUCOSE (test code = 2584172107) 81 mg/dL 70-110 CREATININE (test code = 2230741019) 0.72 mg/dL 0.6-1.25 CALCIUM (test code = 9848972453) 9.1 mg/dL 8.6-10.6 eGFR Calculation (Non-) (test code = 6385283575) mL/min/1.73m2 eGFR Calculation () (test code = 2268142657) mL/min/1.73m2 BRITTA (test code = BRITTA) Association of Glomerular Filtration Rate (GFR) and Staging of Kidney Disease* + -+ + ---+| GFR (mL/min/1.73 m2) ?| With Kidney Damage ?| ?Without Kidney Damage+ -------+ ------+ ---------+| ?>90 ?| ?Stage one ?| ? Normal ?+ --+ -+ ----+| ?60-89 ?| ?Stage two ?| ? Decreased GFR ? + -+ + ---+| ?30-59 ?| ?Stage three ?| ? Stage three ? + -+ + ---+| ?15-29 ?| ?Stage four ? | ? Stage four ?+ --+ -+ ----+| ?<15 (or dialysis) ? ?| ?Stage five ? | ? Stage five ?+ --+ -+ ----+ *Each stage assumes the associated GFR level has been in effect for at least three months. ?Stages 1 to 5, with or without kidney disease, indicate chronic kidney disease. Notes: Determination of stages one and two (with eGFR >59mL/min/1.73 m2) requires estimation of kidney damage for at least three months as defined by structural or functional abnormalities of the kidney, manifested by either:Pathological abnormalities or Markers of kidney damage (including abnormalities in the composition of the blood or urine or abnormalities in imaging tests). [facility] CenterINSULIN, [id number] 05:41:00* Test Item Value Reference Range Interpretation Comme nts Insulin (test code = 7516001992) See_Comment [Automated License Buddy] The system which generated this result transmitted reference range: 1.9 - 23.0 uIU/mL. The reference range was not used to interpret this result as normal/abnormal. Lab Interpretation (test code = 93564-3) Normal [facility] CenterFREE [id number] 00:55:00* Test Item Value Reference Range Interpretation Comme nts FREE T4 (test code = 6301975605) 0.91 ng/dL 0.78-2.2 Lab Interpretation (test cod e = 39611-4) Normal [facility] CenterCORTISOL PM [id number] 21:52:00* Test Item Value Reference Range Interpretation Comme nts JORGE PM (test code = 2900426654) 3.7 ug/dL 1.7-14 BRITTA (test code = BRITTA) Biotin has been reported to cause a positive bias, interpret results relative to patient's use of biotin. Lab Interpretation (test code = 02160-8) Normal [facility] CenterFREE [id number] 21:17:00* Test Item Value Reference Range Interpretation Comme nts FREE T3 (test code = 1233064869) 4.77 pg/mL 2.77-5.27 Lab Interpretation (test cod e = 84519-2) Normal [facility] CenterURINALYSIS2020-05-14 18:39:00* Test Item Value Reference Range Interpretation Comme nts APPEARANCE (test code = 2458805435) Clear Clear COLOR (test code = 8975369269) Yellow Yellow PH (test code = 4549069365) 4.8-8.0 SP GRAVITY (test code = 1258817503) 1.003-1.030 GLU U QUAL (test code = 9904667329) Normal Normal BLOOD (test code = 9989679615) Negative Negative INTERFERENCE FRO M ASCORBIC ACID MAY CAUSE FALSE NEGATIVE RESULT KETONES (test code = 3740356505) Negative Negative PROTEIN (test code = 2887-8) Negative Negative UROBILIN (test code = 7445128298) 2.0 mg/dL Normal A BILIRUBIN (test code = 2717634669) Negative Negative NITRITE (test code = 4331476753) Negative Negative LEUK TYESHA (test code = 8676922172) Negative Negative RBC/HPF (test code = 0481525281) See_Comment [Automated [employer] ge] The system which generated this result transmitted reference range: 0 - 3 HPF. The reference range was not used to interpret this result as normal/abnormal. WBC/HPF (test code = 4472937484) See_Comment [Automated [employer] buy teaa ge] The system which generated this result transmitted reference range: 0 - 5 HPF. The reference range was not used to interpret this result as normal/abnormal. BACTERIA (test code = 9849792173) Negative Negative MUCOUS (test code = 4686929657) Slight Negative LPF A SQ EPITH (test code = 9337318603) <1 HPF Lab Interpretation (test code = 72983-7) Abnormal [facility] CenterTHYROID STIMULATING [id number] 18:00:00 * Test Item Value Reference Range Interpretation Comme nts TSH (test code = 3922890454) See_Comment L Biotin has been reported to cause a negative bias, interpret results relative to patient's use of biotin. [Automated message] The system which generated this result transmitted reference range: 0.45 - 4.70 mIU/L. The reference range was not used to interpret this result as normal/abnormal. Lab Interpretation (test code = 31148-8) Abnormal [facility] CenterCORONAVIRUS COVID-19 [id number] 17:59:00* Test Item Value Reference Range Interpretation Comme nts SARS-CoV-2 (test code = 83932-4) Not Detected Not Detected BRITTA (test code = BRITTA) ID NOW COVID-19 As say is an isothermal nucleic acid amplification test intended for the qualitative detection of nucleic acid from SARS-CoV-2 viral RNA in nasopharyngeal (POST FRAMER) specimens. It is used under Emergency Use Authorization (EUA) by FDA. The limit of detection (LOD) of the assay is 125 Genome Equivalents/mL. A positive result is indicative of the presence of SARS-CoV-2 RNA. ?Clinical correlation with patient history and other diagnostic information is necessary to determine patient infection status. A negative (Not Detected) result does not preclude SARS-CoV-2 infection. Clinical correlation with patient history and other diagnostic information should be used in patient management decisions. Invalid: Please collect a new specimen for repeat patient testing if clinically indicated. Lab Interpretation (test code = 49366-8) Normal [facility] CenterGLYCOSYLATED HEMOGLOBIN (A1C)2019-11-17 17:44:00* Test Item Value Reference Range Interpretation Comments HGB A1C (test code = 4548-4) See_Comment [Automated message] The system which generated this result transmitted reference range: 4.0 - 6.0 % NGSP. The reference range was not used to interpret this result as normal/abnormal. BRITTA (test code = BRITTA) %A1C (NGSP) Interpretation (ADA)4.8-5.6 ? ? Normal or (Non-Diabetic Range)5.7-6.4 ? ? Increased Risk (Pre-Diabetic)>6.5 ?Diabetes Indicated Lab Interpretation (test code = 85405-7) Normal [facility] CenterCritical [id number] 17:19:26Steffany Mccollum MD ? ? 11/17/2019 12:19 PMCritical CarePerformed by: Steffany Mccollum MDAuthorized by: Steffany Mccollum MD Critical care provider statement: ?Critical care time (minutes): ?45 ?Critical care was necessary to treat or prevent imminent or life-threatening deterioration of the following conditions: ?Metabolic crisis ?Critical care was time spent personally by me on the following activities: ?Ordering and performing treatments and interventions, ordering and review of laboratory studies, ordering and review of radiographic studies, re-evaluation of patient's condition, developmentof treatment plan with patient or surrogate, discussions with consultants and examination of patient [facility] GLUCOSE (AUTOMATED)2019-11-17 16:38:00* Test Item Value Reference Range Interpretation Comme nts POCT GLU (test code = 7889592985) 82 mg/dL 70-110 Lab Interpretation (test cod e = 92997-7) Normal [facility] GLUCOSE (AUTOMATED)2019-11-17 16:38:00* Test Item Value Reference Range Interpretation Comme nts POCT GLU (test code = 1996753035) 66 mg/dL 70-110 L Lab Interpretation (test cod e = 71747-8) Abnormal [facility] GLUCOSE (AUTOMATED)2019-11-17 15:43:00* Test Item Value Reference Range Interpretation Comme nts POCT GLU (test code = 7311893755) 94 mg/dL 70-110 Lab Interpretation (test cod e = 10428-9) Normal [facility] Metabolic Panel (NA, K, CL, CO2, GLUCOSE, BUN, CREATININE, CA)2019-11-17 14:40:00* Test Item Value Reference Range Interpretation Comme nts NA (test code = 4164386962) 143 mmol/L 135-145 K (test code = 2698631493) 3.8 mmol/L 3.5-5 CL (test code = 9520186184) 103 mmol/L 98-108 CO2 TOTAL (test code = 2572347258) 31 mmol/L 23-31 AGAP (test code = 3105888976) 2-16 BUN (test code = 0700173252) 8 mg/dL 7-23 GLUCOSE (test code = 6913472608) 37 mg/dL 70-110 LL CREATININE (test code = 6375807848) 0.94 mg/dL 0.6-1.25 CALCIUM (test code = 6524138991) 10.2 mg/dL 8.6-10.6 eGFR Calculation (Non-) (test code = 0866547438) mL/min/1.73m2 eGFR Calculation () (test code = 8552178794) mL/min/1.73m2 BRITTA (test code = BRITTA) Association of Glomerular Filtration Rate (GFR) and Staging of Kidney Disease* + --+ --+ ------+| GFR (mL/min/1.73 m2) ?| With Kidney Damage ?| ?Without Kidney Damage+ --------+ --------+ +| ?>90 ?| ?Stage one ?| ? Normal ?+ ---+ ---+ -------+| ?60-89 ?| ?Stage two ?| ? Decreased GFR ? + --+ --+ ------+| ?30-59 ?| ?Stage three ?| ? Stage three ? + --+ --+ ------+| ?15-29 ?| ?Stage four ? | ? Stage four ?+ ---+ ---+ -------+| ?<15 (or dialysis) ? ?| ?Stage five ? | ? Stage five ?+ ---+ ---+ -------+ *Each stage assumes the associated GFR level has been in effect for at least three months. ?Stages 1 to 5, with or without kidney disease, indicate chronic kidney disease. Notes: Determination of stages one and two (with eGFR >59mL/min/1.73 m2) requires estimation of kidney damage for at least three months as defined by structural or functional abnormalities of the kidney, manifested by either:Pathological abnormalities or Markers of kidney damage (including abnormalities in the composition of the blood or urine or abnormalities in imaging tests). Lab Interpretation (test code = 71917-9) Abnormal [facility] CenterXR CHEST 1 [id number] 14:39:12No acute cardiopulmonary abnormality. Preliminary Report Dictated by Resident: Wilda Rodriguez MD., have reviewed this study and agree with theabove report. EXAM: XR CHEST 1VW HISTORY: chest pain COMPARISON: Chest x-ray dated 09/19/2016. FINDINGS: The lungs are clear without a focal consolidation, pleural effusion, orpneumothorax. The cardiomediastinal silhouette is normal. No acute osseous abnormality is identified. [facility], Radiant Results Inft User - 11/17/2019 9:40 AMCDTEXAM: XR CHEST 1 VWHISTORY: chest pain COMPARISON: Chest x- ray dated 09/19/2016.FINDINGS:The lungs are clear without a focal consolidation, pleural effusion, orpneumothorax. The cardiomediastinal silhouette is normal. No acute osseous abnormality is identified.IMPRESSIONNo acute cardiopulmonary ab normality.Preliminary Report Dictated by Resident: Widla Thapa MD., have reviewed this study and agree with theabove report.[facility] / [facility] - DRUG SCREEN TRIAGE 2019-11-17 14:36:00* Test Item Value Reference Range Interpretation Comme nts BENZO U (test code = 1127447981) Negative Negative WOODY U (test code = 8756323920) Negative Negative AMPHET (test code = 3371996641) Presumptive Positive Negative A THC (test code = 5830346986) Presumptive Positive Negative A Confirmation of Presumptive Positive THC result requires physician order. METHADONE (test code = 3881700697) Negative Negative Meth U (test code = 9405439485) Presumptive Positive Negative A OPIATES (test code = 1626621918) Negative Negative Cocaine Metabolite (test code = 2813652299) Negative Negative PROPOXY (test code = 4124114626) Negative Negative Tric U (test code = 9489232538) Negative Negative PCP (test code = 8640450344) Negative Negative OXYCOD (test code = 1193228646) Negative Negative BRITTA (test code = BRITTA) Urine Drug Cutoff Ranges Benzodiazepines: ? ? 150 ng/mLBarbiturates : ?200 ng/mLAmphetamine: ? 500 ng/mLCannabinoids : ?50 ?ng/mLMethadone: ? 200 ng/mLMethamphetam ine: ? ? 500 ng/mL Opiates: ? 100 ng/mL or 2000 ng/mLCocaine: ? 150 ng/mLPropoxyphene : ?300 ng/mLTricyclics: ?300 ng/mLOxycodone: ? 100 ng/mLPCP: ? 25 ?ng/mL The results are to be used only for medical (i.e., treatment) purposes. Unconfirmed screening results must not be used for non-medical purposes (e.g., employment testing, legal testing). Lab Interpretation (test code = 72377-6) Abnormal [facility] CenterHepatic Function Panel (ALB, T.PRO, BILI T, BU/BC, ALT, AST, ALK PHOS)2019-11-17 14:30:00* Test Item Value Reference Range Interpretation Comme nts TOTAL BILI (test code = 5405343676) 0.8 mg/dL 0.1-1.1 BILI UNCON (test code = 2930730225) 1.0 mg/dL 0.1-1.1 BILI CONJ (test code = 4289744996) 0.0 mg/dL 0-0.3 T PROTEIN (test code = 6236487051) 8.3 g/dL 6.3-8.2 H ALBUMIN (test code = 3756457221) 4.9 g/dL 3.5-5 ALK PHOS (test code = 5102415369) 62 U/L 34-122 ALTv (test code = 1742-6) 15 U/L 5-50 AST(SGOT) (test code = 9614983597) 27 U/L 13-40 Lab Interpretation (test cod e = 12717-9) Abnormal [facility] CenterCBC WITH [id number] 14:23:00* Test Item Value Reference Range Interpretation Comme nts WBC (test code = 6690-2) See_Comment L [Automated [employer] te[employer] ge] The system which generated this result transmitted reference range: 4.20 - 10.70 10*3/?L. The reference range was not used to interpret this result as normal/abnormal. RBC (test code = 789-8) See_Comment [Automated [employer] te[employer] ge] The system which generated this result transmitted reference range: 4.26 - 5.52 10*6/?L. The reference range was not used to interpret this result as normal/abnormal. HGB (test code = 718-7) 15.1 g/dL 12.2-16.4 HCT (test code = 4544-3) 45.7 % 38.4-49.3 MCV (test code = 787-2) 84.5 fL 81.7-95.6 MCH (test code = 785-6) 27.9 pg 26.1-32.7 MCHC (test code = 786-4) 33.0 g/dL 31.2-35 RDW-SD (test code = 99625-8) 40.1 fL 38.5-51.6 RDW-CV (test code = 788-0) 12.9 % 12.1-15.4 PLT (test code = 777-3) See_Comment H [Automated messa ge] The system which generated this result transmitted reference range: 150 - 328 10*3/?L. The reference range was not used to interpret this result as normal/abnormal. MPV (test code = 62432-2) 9.7 fL 9.8-13 L NRBC/100 WBC (test code = 5724466052) See_Comment [Automated [employer] ssage] The system which generated this result transmitted reference range: 0.0 - 10.0 /100 WBCs. The reference range was not used to interpret this result as normal/abnormal. NRBC x10^3 (test code = 1488661670) <0.01 See_Comment [Automated messa ge] The system which generated this result transmitted reference range: 10*3/?L. The reference range was not used to interpret this result as normal/abnormal. GRAN MAT (NEUT) % (test code = 770-8) 52.9 % IMM GRAN % (test code = 2877051562) 0.00 % LYMPH % (test code = 736-9) 36.6 % MONO % (test code = 5905-5) 6.4 % EOS % (test code = 713-8) 3.3 % BASO % (test code = 706-2) 0.8 % GRAN MAT x10^3(ANC) (test code = 0700771731) 2.07 10*3/uL 1.99-6.95 IMM GRAN x10^3 (test code = 6089516690) <0.03 0-0.06 LYMPH x10^3 (test code = 731-0) 1.43 10*3/uL 1.09-3.23 MONO x10^3 (test code = 742-7) 0.25 10*3/uL 0.36-1.02 L EOS x10^3 (test code = 711-2) 0.13 10*3/uL 0.06-0.53 BASO x10^3 (test code = 704-7) 0.03 10*3/uL 0.01-0.09 Lab Interpretation (test code = 27178-5) Abnormal [facility] CenterUrinalysis [id number] 18:57:00* Test Item Value Reference Range Interpretation Comme nts Color (test code = COLOR) Yellow Yellow ,Straw,Pl yellow N Clarity (test code = CLAR) Clear Clear N Specific [place] (test code = SPGR) 1.019 1.001-1.035 N [...] (test code = BACT) Few /HPF RPR, [id number] 11:55:00* Test Item Value Reference Range Interpretation Comme nts RPR (test code = RPR) Non-Reactive Non-Reactive N Thyroid Stimulating Hormone (TSH)2017-05-27 08:00:00* Test Item Value Reference Range Interpretation Comme nts TSH (test code = TSH) 1.13 mIU/mL 0.270-4.200 N Lipid [id number] 07:53:00* Test Item Value Reference Range Interpretation Comme nts Cholesterol (test code = CHOL) 234 mg/dL 0-200 H Triglycerides (test code = TRIG) 109 mg/dL 9-200 N HDL (test code = HDL) 76 mg/dL 40-60 H Chol/HDL (test code = CHOLPHDL) 3.1 Ratio 0.0-5.0 N LDL, Calculated (test code = LDLC) 136 0-130 H (NOTE)RISK OF HEART DISEASEPublished by Hungarian Heart AssociationAnalyte Optimal Boderline Increased RiskCHOL <200 200-239 >240TRIG <150 150-199 >200HDL Male: >60 <40HDL Female: >60 <50LDL <100 130-159 >160LDL NEAR OPTIMAL IS 100-129 VLDL (test code = VLDL) 22 mg/dL 5-40 N LDL/HDL (test code = LDLPHDL) 2 Notes Date/Time Note Provider Source 2017-06-23 20:58:38 [facility] enter Discharge Summary PATIENT NAME: MARTHA PALM PHYSICIAN: Seda Kohler MD Admitted: MR NUMBER: [id number] DISCHARGED: 05/28/2017 06:00:00 REASON FOR ADMISSION: The patient is a 27-year-old male with a past psychiatric history of polysubstance abuse including marijuana and cocaine as well as history of opioid and benzodiazepine use. He has a past medical history significant for seizure disorder being treated with Dilantin 100 mg t.i.d. He is now presenting for suspected suicide attempt via overdose on his Dilantin pills (15 x 100 mg tabs of Dilantin) on 05/22/2017. He spent 4 days at [facility], where he was then transferred to [facility] and signed in voluntarily. All of this was in the context of a fight with his girlfriend, where she kicked him out of the house as well as financial stressors including being the sole provider for his family of 4 including his and 2 kids, ages 2 and 3. During the interview, the patient states that in February of this year, a friend of his had played a prank on him and had him drink 70 pills of his Dilantin that he had crushed up. This had caused him to go to the hospital and be in the ICU for multiple days and rendered him "paralyzed" for more than 3 weeks. He knew that 15 tabs of Dilantin would not kill him. He states that 2 days prior to his admission, he got in a fight with his , who kicked him out of the house. He had stayed one night with a friend, but then was going to have to stay the next night in his car. He did not want to do that, and so was looking for a bed. He did not want to commit a minor crime so as to get a bed in [facility] and instead thought that if he took 15 pills of his Dilantin he could get a comfortable bed in the hospital and he knew it would not kill him as he has already had 70 pills that did not kill him. He states "I would have taken all 90 pills if I wanted to kill myself. I have a whole life to live." He states that he had been stressed since his /girlfriend lost her job in April of this year and he became the sole provider for his family. Other than that he denies any depressive symptoms. Denies any generalized anxiety. Denies any panic attacks. Denies any psychotic features and symptoms. Denies any current manic symptoms or history of manic symptoms. His substance history is significant for UDS positive for marijuana and cocaine. He reports using marijuana daily or at least 2-3 times a week but denies cocaine use currently. He does report a history of cocaine use, opioid use and benzodiazepine use prior to his overdose on the Dilantin in August 2016. AXIS I: Benzodiazepine use disorder, in early remission. Opioid use disorder, in early remission. Prior marijuana and cocaine use. AXIS II: Rule out antisocial personality disorder. AXIS III : Seizure disorder. 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 Prior to that, he was working for a [employer] for 6 years,but then the company had to shut down. Highest education level GED. Legal history Significant for violation of his probation leading him to a 7-month stay in [facility]. His girlfriend is Mindi Figueroa, her number is [phone]. [facility] Discharge Summary PATIENT NAME: MARTHA PALM PHYSICIAN: Seda Kohler MD Admitted: MR NUMBER: [id number] DISCHARGED: 05/28/2017 06:00:00 REASON FOR ADMISSION: The patient is a 27-year-old male with a past psychiatric history of polysubstance abuse including marijuana and cocaine as well as history of opioid and benzodiazepine use. He has a past medical history significant for seizure disorder being treated with Dilantin 100 mg t.i.d. He is now presenting for suspected suicide attempt via overdose on his Dilantin pills (15 x 100 mg tabs of Dilantin) on 05/22/2017. He spent 4 days at [facility], where he was then transferred to [facility] and signed in voluntarily. All of this was in the context of a fight with his girlfriend, where she kicked him out of the house as well as financial stressors including being the sole provider for his family of 4 including his and 2 kids, ages 2 and 3. During the interview, the patient states that in August of this year, a friend of his had played a prank on him and had him drink 70 pills of his Dilantin that he had crushed up. This had caused him to go to the hospital and be in the ICU for multiple days and rendered him "paralyzed" for more than 3 weeks. He knew that 15 tabs of Dilantin would not kill him. He states that 2 days prior to his admission, he got in a fight with his , who kicked him out of the house. He had stayed one night with a friend, but then was going to have to stay the next night in his car. He did not want to do that, and so was looking for a bed. He did not want to commit a minor crime so as to get a bed in [facility] and instead thought that if he took 15 pills of his Dilantin he could get a comfortable bed in the hospital and he knew it would not kill him as he has already had 70 pills that did not kill him. He states "I would have taken all 90 pills if I wanted to kill myself. I have a whole life to live." He states that he had been stressed since his /girlfriend lost her job in April of this year and he became the sole provider for his family. Other than that he denies any depressive symptoms. Denies any generalized anxiety. Denies any panic attacks. Denies any psychotic features and symptoms. Denies any current manic symptoms or history of manic symptoms. His substance history is significant for UDS positive for marijuana and cocaine. He reports using marijuana daily or at least 2-3 times a week but denies cocaine use currently. He does report a history of cocaine use, opioid use and benzodiazepine use prior to his overdose on the Dilantin in August 2016. AXIS I: Benzodiazepine use disorder, in early remission. Opioid use disorder, in early remission. Prior marijuana and cocaine use. AXIS II: Rule out antisocial personality disorder. AXIS III : Seizure disorder. 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 Prior to that, he was working for a [employer] for 6 years,but then the company had to shut down. Highest education level GED. Legal history Significant for violation of his probation leading him to a 7-month stay in [facility]. His girlfriend is Mindi Figueroa, her number is [phone]. [facility] Discharge Summary PRINCIPAL PROCEDURE: Psychopharmacotherapy. SPECIAL PROCEDURE: None. HOSPITAL COURSE: The patient is a 27-year-old male that was admitted to Dr. Almodovar's team from 05/26/2017 to 05/28/2017. The patient was on unit restrictions along with elopement and standard PICU precautions. The patient was started on his home medications of Dilantin 100 mg p.o. t.i.d. for his seizure disorder as well as Vistaril 50 mg p.o. q. 6 hours p.r.n. for anxiety and trazodone 50 mg p.o. at bedtime p.r.n. for insomnia. The patient showed symptom improvement. The patient attended daily assessment and group therapy. On day of discharge, the patient was deemed suitable for discharge based on no SI, HI, AVH and improvement in mood and affect. He was sleeping well. His insight was good. Judgment fair. The patient plans to return to home with family. Continue his psychotropic medications, which are all p.r.n. as needed. Also, while he was on the unit, his UA showed white blood cells and we treated him for urinary tract infection, cystitis uncomplicated. He was having some dysuria and some purulent discharge from the penile urethra. We offered to test him for other STDs, however, he refused as he wanted to discharge. DISCHARGE MENTAL STATUS EXAM ON DISCHARGE: GENERAL: He is a well-groomed, well-nourished male with good eye contact, calm attitude. No psychomotor retardation, activation, tics, tardive dyskinesias or tremors. SPEECH: Regular rate, rhythm, and volume with good articulation. Mood is "good." Affect is euthymic and congruent. Affect is even with normal range and intensity. PERCEPTION: Denies any audiovisual hallucinations. THOUGHT PROCESS: Linear and logical. He does have some moments of circumstantiality. THOUGHT CONTENT: Denies any SI, HI, paranoia, ideas of reference or delusions. Insight is good. JUDGMENT: Fair. The patient is alert and oriented to person, place, time and circumstance. Memory and attention are grossly intact. Gait normal. LABS: None. DRUG REACTIONS AND INTERACTIONS: None. DISCHARGE MEDICATIONS: 1. Vistaril 50 mg p.o. q. 6 hours. p.r.n. for anxiety.. [facility] Discharge Summary PRINCIPAL PROCEDURE: Psychopharmacotherapy. SPECIAL PROCEDURE: None. HOSPITAL COURSE: The patient is a 27-year-old male that was admitted to Dr. Almodovar's team from 05/26/2017 to 05/28/2017. The patient was on unit restrictions along with elopement and standard PICU precautions. The patient was started on his home medications of Dilantin 100 mg p.o. t.i.d. for his seizure disorder as well as Vistaril 50 mg p.o. q. 6 hours p.r.n. for anxiety and trazodone 50 mg p.o. at bedtime p.r.n. for insomnia. The patient showed symptom improvement. The patient attended daily assessment and group therapy. On day of discharge, the patient was deemed suitable for discharge based on no SI, HI, AVH and improvement in mood and affect. He was sleeping well. His insight was good. Judgment fair. The patient plans to return to home with family. Continue his psychotropic medications, which are all p.r.n. as needed. Also, while he was on the unit, his UA showed white blood cells and we treated him for urinary tract infection, cystitis uncomplicated. He was having some dysuria and some purulent discharge from the penile urethra. We offered to test him for other STDs, however, he refused as he wanted to discharge. DISCHARGE MENTAL STATUS EXAM ON DISCHARGE: GENERAL: He is a well-groomed, well-nourished male with good eye contact, calm attitude. No psychomotor retardation, activation, tics, tardive dyskinesias or tremors. SPEECH: Regular rate, rhythm, and volume with good articulation. Mood is "good." Affect is euthymic and congruent. Affect is even with normal range and intensity. PERCEPTION: Denies any audiovisual hallucinations. THOUGHT PROCESS: Linear and logical. He does have some moments of circumstantiality. THOUGHT CONTENT: Denies any SI, HI, paranoia, ideas of reference or delusions. Insight is good. JUDGMENT: Fair. The patient is alert and oriented to person, place, time and circumstance. Memory and attention are grossly intact. Gait normal. LABS: None. DRUG REACTIONS AND INTERACTIONS: None. DISCHARGE MEDICATIONS: 1. Vistaril 50 mg p.o. q. 6 hours. p.r.n. for anxiety.. [facility] Discharge Summary 2. Trazodone 50 mg p.o. at bedtime p.r.n. for insomnia. 3. Bactrim 160 mg p.o. q. 12 hours for 3 days for treatment of uncomplicated cystitis. DISCHARGE INSTRUCTIONS: Provided to the patient. PHYSICAL ACTIVITY: As tolerated. DRIVING, RESTRICTIONS: Do not drive after taking sedating medications such as Vistaril and trazodone. DIET RESTRICTIONS: None. FOLLOWUP: The patient has been encouraged to follow up with the primary care physician for his urinary tract infection versus potential STD most likely chlamydia or gonorrhea. He will need testing and appropriate treatment on outpatient followup. He has also been encouraged to attend therapy potentially couple's therapy for him and his . He has also been encouraged to see a neurologist or primary care doctor for a seizure disorder, so that he can get regular followup. He has been given an application to apply to the [facility] Program. DISPOSITION: The patient is currently stable and tolerating all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 psychosocial stressors, including financial stressors of his losing her job last month and a recent argument with his girlfriend. On interview, he is currently denying all depressive symptoms, all manic symptoms or history of manic symptoms. He is denying any psychotic symptoms and only reports some anxiety around financial issues. His social history is significant for legal trouble for drug possession and violating his probation. AXIS I: Benzodiazepine use disorder, in early remission; opioid use disorder, in early remission; possible current methamphetamine and marijuana use disorder. AXIS II: Rule out antisocial personality disorder. AXIS III: Seizure disorder. 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 PLAN: Mr. Martha Palm is a 27-year-old male admitted to Dr. Almodovar's service on the [facility] and placed on suicide, elopement, seizures, standard PICU precautions, and unit restrictions. He was started on his home dose of Dilantin 100 mg p.o. t.i.d. for his history of seizure disorder. He was also started on Vistaril 50 mg p.o. every 6 hours p.r.n. for anxiety and trazodone 50 mg p.o. at bedtime p.r.n. for insomnia. He was offered nicotine patch and gum for nicotine replacement. Patient Name: MARTHA PALM Internal Medicine has been consulted for current medical needs. He will be monitored daily on the unit. We plan to discharge to home with his girlfriend. He has been encouraged to attend all group therapy sessions to participate in his treatment and to bring any consents to the attention of the treatment team. MD Maria Fernanda Padilla MD Date Dictated: 05/28/2017 Date 05/28/2017 Transcribed: LUIS cc:MD Seda Abdalla Electronically Authenticated and Edited by: Seda Kohler MD On 05/30/2017 12:43 PM [employer] Patient Name: MARTHA PALM Internal Medicine has been consulted for current medical needs. He will be monitored daily on the unit. We plan to discharge to home with his girlfriend. He has been encouraged to attend all group therapy sessions to participate in his treatment and to bring any consents to the attention of the treatment team. MD Maria Fernanda Padilla MD Date Dictated: 05/28/2017 Date 05/28/2017 Transcribed: PATRICIA/FAITH cc:MD Seda Abdalla Electronically Authenticated and Edited by: Seda Kohler MD On 05/30/2017 12:43 PM [employer] Electronically Authenticated by: Maria Fernanda Almodovar MD On 06/10/2017 12:55 PM [employer]
[2024-04-08 16:42] LABS: Absolute Basophils 0.1 K/uL (0-0.5); Absolute Eosinophils 0.2 K/uL (0-0.5); Absolute Monocytes 0.5 K/uL (0.1-1.3); Absolute Neutrophil 2.2 K/uL (1.8-8.0); Basophils % 1.5 % (0-1.3); Eosinophils % 4.2 % (0-4.4); Hematocrit 44.6 % (39.6-49.0); Hemoglobin 14.6 g/dL (13.6-17.9); Lymphocytes % 40.2 % (15.3-44.8); MCH 28.6 pg (27.0-35.0); MCHC 32.8 g/dL (32.0-36.0); Monocytes % 9.3 % (3.3-12.3); Neutrophils % 44.8 % (41.7-73.7); Nucleated Red Blood Cells % 0.1 % (0-0); Platelets 347 thou/uL (152-406); RBC Red Blood Cell Count 5.13 M/uL (4.33-5.43); Red Cell Distribution Width 13.8 % (12.1-15.2)
[2024-04-08 16:58] LABS: Anion Gap 8.8 mEq/L (5.0-15.0); Potassium 3.8 mEq/L (3.5-5.1)
[2024-04-08] MEDS ORDERED: LEVETIRACETAM 500 MG/5 ML VIAL IV ONE (17:13)
[2024-04-08] MEDS ORDERED: NA CHLORIDE 0.9% 100 ML ONE (17:16)
--- NOTE | 2024-04-08 17:33 | RAD REPORT ---
EXAM: CT brain without contrast HISTORY: head injury COMPARISON: None TECHNIQUE: Multiple contiguous axial images were obtained and a CT of the brain without contrast. Sag ittal and coronal reformats were performed. One or more of the following dose reduction techniques were used: Automated exposure control, adjust ment of the mA and/or kV according to patient size, and/or iterative reconstruction. FINDINGS: No evidence of hydrocephalus, intracranial hemorrhage, or extra-axial fluid collection. The brain is normal in morphology. No evidence of midline shift or areas of brain edema. The calvarium is intact. The visualized paranasal sinuses and mastoid air cells are essentially clear . IMPRESSION: No evidence of acute intracranial abnormality.
--- NOTE | 2024-04-08 17:35 | ER ---
Nurse's Notes [facility] Name: Hima Palm Age: 33 yrs Sex: Male : 1990 Arrival Date: 04/08/2024 Time: 16:16 Bed 3 Private MD: Diagnosis: Other seizures Presentation: 04/08 16:30 Chief complaint: EMS states: co workers called stating patient had seizure, was post ko1 ictal upon ems arrival, should be on seizure meds but doesn't take them due to the side effects, also has hypertension but does not take medications. Coronavirus screen: At this time, the client does not indicate any symptoms associated with coronavirus-19. Ebola Screen: No symptoms or risks identified at this time. Initial Sepsis Screen: Does the patient meet any 2 criteria? No. Patient's initial sepsis screen is negative. Does the patient have a suspected source of infection? No. Patient's initial sepsis screen is negative. Risk Assessment: Do you want to hurt yourself or someone else? Patient reports no desire to harm self or others. Onset of symptoms was April 08, 2024. Care prior to arrival: Glucose check: 90. 16:30 Method Of Arrival: EMS: [facility] ko1 16:30 Acuity: CHANDRAKANT 3 ko1 Triage Assessment: 16:40 General: Appears in no apparent distress. Behavior is cooperative, appropriate for age. ko1 Pain: Complains of pain in left ribs. EENT: No deficits noted. Neuro: Seizure activity reported prior to arrival. Type of seizure: grand mal seizure. Cardiovascular: No deficits noted. Respiratory: No deficits noted. GI: No deficits noted. : No deficits noted. Derm: No deficits noted. Musculoskeletal: No deficits noted. Historical: - Allergies: 16:40 No Known Allergies; ko1 - Home Meds: 16:40 Dilantin Oral 100 mg three times a day [Active]; ko1 - PMHx: 16:40 Seizures; SUICIDE ATTEMPT; Hypertensive disorder; ko1 - PSHx: 16:40 None; ko1 - Immunization history:: Adult Immunizations up to date. - Infectious Disease History:: Denies. - Social history:: Smoking status: unknown. Screenin:[address] [facility] ED Fall Risk Assessment (Adult) History of falling in the last 3 months, ko1 including since admission No falls in past 3 months (0 pts) Confusion or Disorientation No (0 pts) Intoxicated or Sedated No (0 pts) Impaired Gait No (0 pts) Mobility Assist Device Used No (0 pt) Altered Elimination No (0 pt) Score/Fall Risk Level 0 - 2 = Low Risk Oriented to surroundings, Maintained a safe environment, Educated pt \T\ family on fall prevention, incl call for assistance when getting out of bed, Assessed \T\ reinforced patient's understanding of fall precautions, Hourly rounding (assess needs \T\ fall precautionary measures) done. Abuse screen: Denies threats or abuse. Denies injuries from another. Nutritional screening: No deficits noted. Tuberculosis screening: No symptoms or risk factors identified. Assessment: 16:42 Reassessment: see triage note. ko1 17:41 Reassessment: D/C pending completion of Keppra IV. mb9 17:49 Reassessment: Patient appears in no apparent distress at this time. Patient and/or mb9 family updated on plan of care and expected duration. Pain level reassessed. Patient is alert, oriented x 3, equal unlabored respirations, skin warm/dry/pink. Patient states feeling better. Patient states symptoms have improved. Vital Signs: 16:30 BP 150 / 114; Pulse 89; Resp 16; Temp 97; Pulse Ox 100% ; ko1 17:41 BP 141 / 103; Pulse 80; Resp 18; Pulse Ox 100% ; mb9 Isabella Coma Score: 16:40 Eye Response: spontaneous(4). Motor Response: obeys commands(6). Verbal Response: ko1 oriented(5). Total: 15. ED Course: 16:28 Patient arrived in ED. ec2 16:30 Germain Singh MD is Attending Physician. ec2 16:31 Yue Farmer, RUIZ is Primary Nurse. ko1 16:36 BMP Sent. mb9 16:36 CBC with Diff Sent. mb9 16:36 Initial lab(s) drawn, by me, sent to lab. Inserted saline lock: 24 gauge in left hand, mb9 using aseptic technique. Blood collected. Flushed with 10 mL NS. 16:39 Triage completed. ko1 16:40 Arm band placed on right wrist. Patient placed in an exam room, on a stretcher, on ko1 groundwater monitoring technician, on pulse oximetry, Patient notified of wait time. 16:42 No provider procedures requiring assistance completed. ko1 16:42 Patient has correct armband on for positive identification. Bed in low position. Call ko1 light in reach. Side rails up X2. Seizure precautions initiated. Provided Education on: labs, meds. Client placed on continuous cardiac and pulse oximetry monitoring. NIBP monitoring applied. cardiac monitor on. Door closed. Noise minimized. Lights dimmed. Warm blanket given. Pillow given. 17:31 CT Head Brain wo Cont In Process Unspecified. EDMS Administered Medications: 16:41 CANCELLED (Physician Discretion): [id number] mg IVPB once ec2 17:17 Drug: Keppra IV 1000 mg IV at calculated rate once Route: IV; Rate: calculated rate; ko1 Site: left hand; 17:49 Follow up: Response: No adverse reaction; IV Status: Completed infusion [id number] Medication: 16:42 VIS not applicable for this client. ko1 Outcome: 17:35 Discharge ordered by . ec2 17:41 Discharged to home ambulatory, mb9 17:41 Condition: stable 17:41 Discharge instructions given to patient, Instructed on discharge instructions, follow up and referral plans. Demonstrated understanding of instructions, follow-up care, medications, Prescriptions given X 1, 17:49 Patient left the ED. mb9 Signatures: Dispatcher [employer] Yue Snider, RN RN ko1 Nisha Colunga RN RN mb9 Germain Singh MD MD ec2
--- NOTE | 2024-04-08 17:35 | EDPHYS ---
Physician Documentation [facility] Name: Hima Palm Age: 33 yrs Sex: Male : 1990 Arrival Date: 04/08/2024 Time: 16:16 Bed 3 Private MD: ED Physician Germain Singh HPI: 04/08 16:42 This 33 yrs old Black Male presents to ER via EMS with complaints of Seizure. ec2 16:42 Patient arrives today for evaluation of a seizure episode. Patient with history of ec2 seizures, supposed to be on Keppra, has not been on medications due to insurance and primary care issues. Has seizures approximately once a week or every several weeks. Also had a seizure today and struck his head. No LOC. No blood thinners.. Historical: - Allergies: 16:40 No Known Allergies; ko1 - Home Meds: 16:40 Dilantin Oral 100 mg three times a day [Active]; ko1 - PMHx: 16:40 Seizures; SUICIDE ATTEMPT; Hypertensive disorder; ko1 - PSHx: 16:40 None; ko1 - Immunization history:: Adult Immunizations up to date. - Infectious Disease History:: Denies. - Social history:: Smoking status: unknown. ROS: 16:42 Constitutional: as per hpi ec2 Exam: 16:42 Constitutional: GEN: NAD Head: atraumatic Eyes: EOMI Ears: External ears are ec2 normal. CV: regular rate LUNGS: no respiratory distress ABD: non-distended SKIN: no evidence of rashes MSK: no evidence of trauma Vital Signs: 16:30 BP 150 / 114; Pulse 89; Resp 16; Temp 97; Pulse Ox 100% ; ko1 17:41 BP 141 / 103; Pulse 80; Resp 18; Pulse Ox 100% ; mb9 Ruslan Coma Score: 16:40 Eye Response: spontaneous(4). Motor Response: obeys commands(6). Verbal Response: ko1 oriented(5). Total: 15. MDM: 16:30 Patient medically screened. ec2 16:42 Data reviewed: vital signs. ED course: Patient arrives today for a seizure episode. ec2 Examination remarkable for well-appearing neuro intact individuals otherwise in no acute distress. Will obtain lab work, CT scan of the head and load with Keppra. Differential includes patient's known seizure condition, also evaluating for process such as electrolyte disturbances, anemia, intracranial mass, intracranial bleed . 17:34 ED course: CT scan of the head shows no acute traumatic injury. Will discharge home, ec2 restart Keppra. Suspect patient's known seizure disorder. . 04/08 16:30 Order name: CBC with Diff; Complete Time: 17:08 ec2 04/08 16:30 Order name: BMP; Complete Time: 17:08 ec2 04/08 16:31 Order name: CT Head Brain wo Cont; Complete Time: 17:34 ec2 04/08 16:36 Order name: IV Saline Lock; Complete Time: 16:36 mb9 Administered Medications: 16:41 CANCELLED (Physician Discretion): [id number] mg IVPB once ec2 17:17 Drug: Keppra IV 1000 mg IV at calculated rate once Route: IV; Rate: calculated rate; ko1 Site: left hand; 17:49 Follow up: Response: No adverse reaction; IV Status: Completed infusion mb9 Disposition Summary: 04/08/24 17:35 Discharge Ordered Notes: Location: Home ec2 Condition: Stable ec2 Diagnosis - Other seizures ec2 Followup: ec2 - With: Private Physician - When: - Reason: Re-evaluation by your physician Discharge Instructions: - Discharge Summary Sheet ec2 - Seizure, Adult ec2 Forms: - Medication Reconciliation Form ec2 - Antibiotic Education ec2 - Prescription Opioid Use ec2 - Patient Portal Instructions ec2 - Leadership Thank You Letter ec2 Prescriptions: - Keppra 500 mg Oral tablet - take 1 tablet ORAL route every 12 hours; 60 tablet; Refills: 0, Product ec2 Selection Permitted Signatures: Dispatcher [employer] EDYue Giang RN RN ko1 Nisha Colunga RN RN mb9 Germain Singh MD MD ec2 Corrections: (The following items were deleted from the chart) 16:31 16:31 CBC+H.LAB.BRZ ordered. EDMS EDMS 16:31 16:31 BASIC METABOLIC PANEL+C.LAB.BRZ ordered. EDMS EDMS 16:31 16:31 Head Brain Wo Cont+CT.RAD.BRZ ordered. EDMS EDMS 16:41 16:31 Phenytoin IVPB 500 mg IVPB once ordered. ec2 ec2
[2024-04-08 19:11] VITALS: TEMP 97; O2SAT 100
[2024-04-08 19:12] VITALS: BP 141/103
== END 2024-04-08 17:49 | disposition home or self-care (01) ==
LOC: ER 16:16
DX: G40.89 Other seizures (principal)
CPT/HCPCS: 36415; 70450; 80048; 85025; 96365; 99285; J1953